=== PATIENT | female | born 1955 | race Caucasian/White ===

== ENCOUNTER → 2017-12-23 | Outpatient (CLI) | payer OTHER ==
[2017-12-23 10:01] LABS: BASOPHILS % (AUTO) 0.7 % (0.0-5.0); HEMATOCRIT 38.1 % (36-48); LYMPHOCYTES % (AUTO) 43.1 % (21.0-51.0); MEAN CORPUSCULAR HEMOGLOBIN 28.7 pg (27.0-33.0); MEAN CORPUSCULAR HGB CONC 33.9 g/dL (32.0-36.0); MEAN CORPUSCULAR VOLUME 84.7 fL (79-99); MONOCYTES % (AUTO) 5.6 % (3.0-13.0); NEUTROPHILS % (AUTO) 48.6 % (40.0-77.0); PLATELET COUNT (AUTO) 219 K/uL (130-400); RED CELL DISTRIBUTION WIDTH 13.4 % (11.0-15.5); WHITE BLOOD COUNT (AUTO) 12.3 K/uL (4.8-10.8)
[2017-12-23 10:09] LABS: HEMOGLOBIN A1C 5.7 % (4.0-6.0)
[2017-12-23 10:21] LABS: ALBUMIN 3.5 g/dL (3.5-5.0); BILIRUBIN,TOTAL 0.3 mg/dL (0.2-1.0); CREATININE 0.7 mg/dL (0.5-1.5); POTASSIUM 4.3 mmol/L (3.5-5.1); TOTAL PROTEIN, SERUM 7.6 g/dL (6.0-8.3)
== END | disposition home or self-care (01) ==
LOC: LAB 09:19
PROVIDERS: ATTEND Internal Medicine
DX: K76.0 Fatty (change of) liver, not elsewhere classified (principal); R74.8 Abnormal levels of other serum enzymes
CPT/HCPCS: 36415; 80053; 80061; 83036; 85025

== ENCOUNTER → 2018-06-21 | Outpatient (CLI) | payer OTHER ==
[2018-06-21 09:16] LABS: BASOPHILS % (AUTO) 0.6 % (0.0-5.0); HEMATOCRIT 39.7 % (36-48); LYMPHOCYTES % (AUTO) 37.2 % (21.0-51.0); MEAN CORPUSCULAR HEMOGLOBIN 28.6 pg (27.0-33.0); MEAN CORPUSCULAR HGB CONC 33.2 g/dL (32.0-36.0); MEAN CORPUSCULAR VOLUME 85.9 fL (79-99); NEUTROPHILS % (AUTO) 56.2 % (40.0-77.0); PLATELET COUNT (AUTO) 218 K/uL (130-400); RED BLOOD CELL COUNT(AUTO) 4.62 MIL/uL (4.00-5.50); RED CELL DISTRIBUTION WIDTH 13.6 % (11.0-15.5); WHITE BLOOD COUNT (AUTO) 12.8 K/uL (4.8-10.8)
[2018-06-21 09:44] LABS: ALBUMIN 3.6 g/dL (3.5-5.0); BILIRUBIN,TOTAL 0.4 mg/dL (0.2-1.0); CREATININE 0.7 mg/dL (0.5-1.5); POTASSIUM 3.7 mmol/L (3.5-5.1); THYROID STIMULATING HORMONE 1.89 uIU/mL (0.36-3.74); TOTAL PROTEIN, SERUM 7.7 g/dL (6.0-8.3)
== END | disposition home or self-care (01) ==
LOC: LAB 08:43
PROVIDERS: ATTEND Internal Medicine
DX: K76.0 Fatty (change of) liver, not elsewhere classified (principal); E03.9 Hypothyroidism, unspecified; J45.909 Unspecified asthma, uncomplicated
CPT/HCPCS: 36415; 80053; 84439; 84443; 85025

== ENCOUNTER → 2018-10-29 | Outpatient (CLI) | payer OTHER ==
[2018-10-29 08:58] LABS: BASOPHILS % (AUTO) 0.6 % (0.0-5.0); EOSINOPHILS % (AUTO) 2.2 % (0.0-8.0); HEMATOCRIT 38.8 % (36-48); LYMPHOCYTES % (AUTO) 45.2 % (21.0-51.0); MEAN CORPUSCULAR HEMOGLOBIN 28.7 pg (27.0-33.0); MEAN CORPUSCULAR VOLUME 86.9 fL (79-99); MONOCYTES % (AUTO) 5.1 % (3.0-13.0); NEUTROPHILS % (AUTO) 46.9 % (40.0-77.0); PLATELET COUNT (AUTO) 218 K/uL (130-400); RED BLOOD CELL COUNT(AUTO) 4.46 MIL/uL (4.00-5.50); WHITE BLOOD COUNT (AUTO) 10.8 K/uL (4.8-10.8)
[2018-10-29 09:11] LABS: ALBUMIN 3.4 g/dL (3.5-5.0); BILIRUBIN,TOTAL 0.4 mg/dL (0.2-1.0); CREATININE 0.7 mg/dL (0.5-1.5); POTASSIUM 4.1 mmol/L (3.5-5.1); TOTAL PROTEIN, SERUM 7.9 g/dL (6.0-8.3)
== END | disposition home or self-care (01) ==
LOC: LAB 08:33
PROVIDERS: ATTEND Internal Medicine
DX: Z00.00 Encounter for general adult medical examination without abnormal findings (principal); J45.998 Other asthma; M76.9 Unspecified enthesopathy, lower limb, excluding foot
CPT/HCPCS: 36415; 80053; 85025

== ENCOUNTER → 2018-12-30 | Outpatient (CLI) | payer OTHER ==
[2018-12-30 10:29] LABS: BASOPHILS % (AUTO) 0.6 % (0.0-5.0); HEMATOCRIT 37.8 % (36-48); LYMPHOCYTES % (AUTO) 35.1 % (21.0-51.0); MEAN CORPUSCULAR HEMOGLOBIN 28.3 pg (27.0-33.0); MEAN CORPUSCULAR HGB CONC 32.9 g/dL (32.0-36.0); MEAN CORPUSCULAR VOLUME 86.1 fL (79-99); MONOCYTES % (AUTO) 4.6 % (3.0-13.0); NEUTROPHILS % (AUTO) 57.7 % (40.0-77.0); PLATELET COUNT (AUTO) 210 K/uL (130-400); RED CELL DISTRIBUTION WIDTH 14.1 % (11.0-15.5); WHITE BLOOD COUNT (AUTO) 10.5 K/uL (4.8-10.8)
[2018-12-30 10:37] LABS: HEMOGLOBIN A1C 5.8 % (4.0-6.0)
[2018-12-30 10:49] LABS: ALBUMIN 3.3 g/dL (3.5-5.0); BILIRUBIN,TOTAL 0.2 mg/dL (0.2-1.0); CREATININE 0.9 mg/dL (0.5-1.5); POTASSIUM 4.2 mmol/L (3.5-5.1); THYROID STIMULATING HORMONE 1.84 uIU/mL (0.36-3.74); TOTAL PROTEIN, SERUM 7.2 g/dL (6.0-8.3)
[2018-12-30 10:50] LABS: B-TYPE NATRIURETIC PEPTIDE 32 pg/mL (0-100)
[2018-12-30 11:29] LABS: ERYTHROCYTE SEDIMENTATION RATE 39 MM/HR (0-30)
== END | disposition home or self-care (01) ==
LOC: LAB 10:00
PROVIDERS: ATTEND Internal Medicine
DX: J45.40 Moderate persistent asthma, uncomplicated (principal); M85.80 Other specified disorders of bone density and structure, unspecified site
CPT/HCPCS: 36415; 80053; 83036; 83880; 84443; 85025; 85651

== ENCOUNTER → 2019-02-15 | Outpatient (CLI) | payer OTHER ==
[2019-02-15 14:16] LABS: BASOPHILS % (AUTO) 0.6 % (0.0-5.0); EOSINOPHILS % (AUTO) 1.3 % (0.0-8.0); HEMATOCRIT 38.6 % (36-48); LYMPHOCYTES % (AUTO) 34.4 % (21.0-51.0); MEAN CORPUSCULAR HEMOGLOBIN 27.7 pg (27.0-33.0); MEAN CORPUSCULAR HGB CONC 32.2 g/dL (32.0-36.0); MONOCYTES % (AUTO) 5.1 % (3.0-13.0); NEUTROPHILS % (AUTO) 58.6 % (40.0-77.0); PLATELET COUNT (AUTO) 209 K/uL (130-400); RED BLOOD CELL COUNT(AUTO) 4.48 MIL/uL (4.00-5.50); RED CELL DISTRIBUTION WIDTH 14.2 % (11.0-15.5); WHITE BLOOD COUNT (AUTO) 13.3 K/uL (4.8-10.8)
== END | disposition home or self-care (01) ==
LOC: LAB 13:40
PROVIDERS: ATTEND Internal Medicine
DX: J45.901 Unspecified asthma with (acute) exacerbation (principal)
CPT/HCPCS: 36415; 85025

== ENCOUNTER → 2019-03-15 | Outpatient (CLI) | payer OTHER | END | disposition home or self-care (01) | LOC: RAH 13:08 | PROVIDERS: ATTEND Otolaryngology Plastic Surgery within the Head & Neck | DX: E04.2 Nontoxic multinodular goiter (principal); J32.0 Chronic maxillary sinusitis | CPT/HCPCS: 70486; 76536 ==

== ENCOUNTER → 2019-05-17 | Outpatient (CLI) | payer OTHER | END | disposition home or self-care (01) | LOC: RAH 08:19 | PROVIDERS: ATTEND Allergy & Immunology | DX: R05 Cough (principal) | CPT/HCPCS: 71046 ==

== ENCOUNTER → 2019-05-19 | Outpatient (CLI) | payer OTHER ==
[2019-05-19 12:44] LABS: BASOPHILS % (AUTO) 0.5 % (0.0-5.0); EOSINOPHILS % (AUTO) 1.8 % (0.0-8.0); HEMATOCRIT 39.8 % (36-48); LYMPHOCYTES % (AUTO) 42.5 % (21.0-51.0); MEAN CORPUSCULAR HEMOGLOBIN 27.9 pg (27.0-33.0); MEAN CORPUSCULAR HGB CONC 32.3 g/dL (32.0-36.0); MEAN CORPUSCULAR VOLUME 86.6 fL (79-99); NEUTROPHILS % (AUTO) 51.2 % (40.0-77.0); PLATELET COUNT (AUTO) 198 K/uL (130-400); RED CELL DISTRIBUTION WIDTH 14.1 % (11.0-15.5); WHITE BLOOD COUNT (AUTO) 13.2 K/uL (4.8-10.8)
[2019-05-19 12:56] LABS: INR 0.92 (0.85-1.15); PARTIAL THROMBOPLASTIN TIME 26.6 SEC (26.3-35.5); PROTHROMBIN TIME 9.7 SEC (9.6-11.6)
[2019-05-19 12:59] LABS: ALBUMIN 3.2 g/dL (3.5-5.0); BILIRUBIN,TOTAL 0.2 mg/dL (0.2-1.0); CREATININE 0.8 mg/dL (0.5-1.5); TOTAL PROTEIN, SERUM 6.9 g/dL (6.0-8.3)
== END | disposition home or self-care (01) ==
LOC: LAB 12:12
PROVIDERS: ATTEND Internal Medicine
DX: Z01.818 Encounter for other preprocedural examination (principal); I10 Essential (primary) hypertension
CPT/HCPCS: 36415; 80053; 85025; 85610; 85730

== ENCOUNTER 2019-06-07 06:35 | Observation (INO) | payer OTHER ==
[2019-06-03 11:43] VITALS: BP 127/59
--- NOTE | 2019-06-03 14:44 | NUR ---
Called Doctor Elmer's office and spoke to Barbie in regards to pt reporting a infection to tooth implant. Per md Barbie aware no further action.
[2019-06-07] VITALS (25 sets, daily range): BP systolic 127–170; BP diastolic 57–91
[~2019-06-07] VITALS: Ht 160 cm; Wt 72.7 kg
[~2019-06-07 06:35] MED LIST: ALBU1.252 IH; ALBU8.5H8 IH; BUDE0.5A8 IH; CETI-101 PO; CROM40SP12 NS; DOCU-116 PO; EREN70AU SQ; FEXO1TAB8 PO; FLUT16H NASAL; METR160G TP; MOME13HF IH; MONT10TA21 PO; ONDA4TAB4 PO; PRED20TA3 PO; SUMA100T16 PO; TUM PO; nasal spray IH
[2019-06-07] MEDS ORDERED: LACTATED RINGERS 1000ML 1,000 ML IV ONE (07:01)
[2019-06-07] MEDS ORDERED: LIDOCAINE 1%-EPI 1:100,000 20 ML VIAL IJ ONE (07:30)
[2019-06-07] MEDS ORDERED: SUCCINYLCHOLINE 200MG/10ML SYR ONE (07:38)
[2019-06-07] MEDS ORDERED: DEXAMETHASONE SOD PHOSPHATE 10MG/ML 1ML VIAL ONE (07:38)
[2019-06-07] MEDS ORDERED: LIDOCAINE PF 2% 5ML ABBOJECT ONE (07:38)
[2019-06-07] MEDS ORDERED: ONDANSETRON HCL 4 MG/2 ML VIAL ONE ×2 (07:39→09:14)
[2019-06-07] MEDS ORDERED: NEOSTIGMINE 5MG/5ML SYR IV ONE (07:39)
[2019-06-07] MEDS ORDERED: ROCURONIUM 10MG/1ML SYR 10 MG/ML ML ONE (07:39)
[2019-06-07] MEDS ORDERED: MIDAZOLAM HCL 1 MG/ML 2ML VIAL ONE (07:39)
[2019-06-07] MEDS ORDERED: PROPOFOL 10 MG/ML 20ML VIAL IV ONE (07:39)
[2019-06-07] MEDS ORDERED: GLYCOPYRROLATE 1 MG/5 ML SYRINGE ONE (07:39)
[2019-06-07] MEDS ORDERED: FENTANYL CITRATE PF 50 MCG/1 ML 2ML VIAL ONE (07:40)
[2019-06-07] MEDS ORDERED: CEFAZOLIN SODIUM 1 GM VIAL IVP ONE (07:45)
[2019-06-07] MEDS ORDERED: PHENYLEPHRINE HCL 10 MG/ML 1ML VIAL IV ONE (08:10)
[2019-06-07] MEDS ORDERED: SODIUM CHLORIDE 0.9% 10 ML VIAL ONE (08:10)
[2019-06-07] MEDS ORDERED: BACITRACIN 28.4 GM OINT TP ONE (08:55)
[2019-06-07] MEDS ORDERED: MEPERIDINE-PF 25 MG/ML SYG ONE ×2 (09:22→09:37)
--- NOTE | 2019-06-07 10:20 | NUR ---
note ARRIVED FROM RECOVERY ROOM. S/P RIGHT HEMITHYROIDECTOMY. DRESSING TO ANTERIOR NECK D/I. REPORTED THAT SHE HAS PARI DRAIN UNDER DRESSING. NO DRAINAGE NOTED THOUGH. NO DYSPHAGIA JUST SORE THROAT. SHE IS STARTED ON CLEAR LIQUIDS. VS STABLE. NO DISTRESS OR SOB. O2@2LNC. 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 AT HER SIDE.
[2019-06-07] MEDS ORDERED: NALOXONE HCL 0.4 MG/1 ML ML IVP PRN (10:45)
[2019-06-07] MEDS ORDERED: ACETAMINOPHEN-CODEINE 300/30MG TAB PO PRN (10:45)
[2019-06-07] MEDS ORDERED: MORPHINE-NS 50 MG/50 ML 50 ML IV PRN (10:45)
[2019-06-07] MEDS: DEXTROSE 5 % AND 0.9 % NACL 1,000 ML IV SCH ×2 (11:03→23:36)
[2019-06-07] MEDS: CEPHALEXIN 500 MG CAPSULE PO SCH ×2 (11:40→21:10)
[2019-06-07] MEDS ORDERED: PREDNISONE 20 MG TABLET PO SCH (12:30)
[2019-06-07] MEDS ORDERED: ALBUTEROL SULFATE 0.042% 1.25 MG/3 ML INH IH PRN (12:30)
[2019-06-07] MEDS ORDERED: DOCUSATE SODIUM 100 MG CAP PO PRN (12:30)
[2019-06-07] MEDS ORDERED: ONDANSETRON 4 MG TABLET PO PRN (12:30)
[2019-06-07] MEDS: PHARMACY COMMUNICATION MISC SCH ×2 (13:00→21:00)
[2019-06-07] MEDS: BUDESONIDE 0.5 MG/2 ML INH IH PRN (19:18)
[2019-06-07] MEDS ORDERED: MONTELUKAST SODIUM 10 MG TAB PO SCH (21:00)
[2019-06-07] MEDS: FLUTICASONE PROPIONATE 50MCG/SPRAY 16 GM BOTTLE NS SCH (21:10)
[2019-06-08 03:53] VITALS: BP 121/67
[2019-06-08] MEDS: PHARMACY COMMUNICATION MISC SCH (05:00)
[2019-06-08] MEDS: BUDESONIDE 0.5 MG/2 ML INH IH PRN (05:18)
[2019-06-08 05:26] LABS: BASOPHILS % (AUTO) 0.2 % (0.0-5.0); HEMATOCRIT 38.2 % (36-48); LYMPHOCYTES % (AUTO) 12.6 % (21.0-51.0); MEAN CORPUSCULAR HEMOGLOBIN 28.6 pg (27.0-33.0); MEAN CORPUSCULAR VOLUME 86.6 fL (79-99); MONOCYTES % (AUTO) 6.6 % (3.0-13.0); NEUTROPHILS % (AUTO) 80.6 % (40.0-77.0); PLATELET COUNT (AUTO) 220 K/uL (130-400); RED BLOOD CELL COUNT(AUTO) 4.41 MIL/uL (4.00-5.50); RED CELL DISTRIBUTION WIDTH 14.1 % (11.0-15.5); WHITE BLOOD COUNT (AUTO) 18.2 K/uL (4.8-10.8)
[2019-06-08 07:38] VITALS: BP 138/78
[2019-06-08] MEDS ORDERED: SUMATRIPTAN SUCCINATE 25 MG TABLET PO PRN (08:15)
[2019-06-08] MEDS ORDERED: CALCIUM CARBON 500MG CHEW TAB PO PRN (08:15)
[2019-06-08] MEDS ORDERED: PSEUDOEPHEDRINE PO SCH (09:00)
[2019-06-08] MEDS ORDERED: [UNRECOGNIZED DRUG - OTHER] IH SCH (09:00)
[2019-06-08] MEDS ORDERED: [UNRECOGNIZED DRUG - REMARK] NASAL SCH (09:00)
[2019-06-08] MEDS ORDERED: CETIRIZINE HCL 5 MG TABLET PO SCH (09:00)
[2019-06-08] MEDS ORDERED: METRONIDAZOLE TP PRN (09:00)
[2019-06-08] MEDS ORDERED: FORMOTEROL IH SCH (09:00)
[2019-06-08] MEDS ORDERED: VENTOLIN HFA IH PRN (09:00)
[2019-06-08] MEDS ORDERED: MOMETASONE IH SCH (09:00)
[2019-06-08] MEDS ORDERED: FEXOFENADINE PO SCH (09:00)
[2019-06-08] MEDS: CEPHALEXIN 500 MG CAPSULE PO SCH (09:29)
[2019-06-08] MEDS: FLUTICASONE PROPIONATE 50MCG/SPRAY 16 GM BOTTLE NS SCH (10:16)
--- NOTE | 2019-06-08 12:12 | NUR ---
PT HERE FOR SCHEDULED OUT PT PROCEDURE AMB, EMPL, INDP OF ADLS, NO TRIGGERS TO CM NO CONCERNS VOICED, DETAILED CM ASSESSMENT DEFERRED Addendum: 06/08/19 at 1214 by PURVI SNIDER RN CM Amended: Links added.
--- NOTE | 2019-06-08 13:30 | NUR ---
DISCHARGE PATIENT GIVEN DISCHARGE INSTRUCTIONS VIA TEACH BACK. RX GIVEN FOR KELFEX 500MG 1 CAP PO BID X 5 DAYS AND T3. PATIENT TO FOLLOW UP WITH DR. FUENTES ON THURSDAY. 20G PIV TO LEFT HAND DISCONTINUED, TIP INTACT. DR. FUENTES REMOVED PARI DRAIN AND APPLIED LIGHT DRY DRESSING. PATIENT STABLE AT THIS TIME. PATIENT WHILED DOWNSTAIRS TO LOBBY ACCOMPANIED BY SPOUSE AND JAMESONANDRY.
[2019-06-12] MEDS ORDERED: ERENUMAB AOOE 70 MG SQ SCH (09:00)
== END 2019-06-08 12:54 | disposition home or self-care (01) ==
LOC: DAH 06:35 → 4BH 06:36 → UNDOADMOB 10:49
PROVIDERS: ADMIT Otolaryngology Plastic Surgery within the Head & Neck; ATTEND Otolaryngology Plastic Surgery within the Head & Neck
DX: E07.9 Disorder of thyroid, unspecified (principal); J45.909 Unspecified asthma, uncomplicated; E07.89 Other specified disorders of thyroid; Z79.899 Other long term (current) drug therapy
CPT/HCPCS: 36415; 60210; 85025; 88307; 88331; 94640 ×2; 94664; 96365; A4215; A4221; A4222; A4223; A4600; A4663; A4930 ×2; C1729; G0378 ×27; J0330; J0690; J1100; J2001; J2175 ×2; J2250; J2270; J2370; J2405 ×2; J2704; J2710; J3010; J3490 ×2; J7042 ×2; J7120 ×2

== ENCOUNTER → 2019-07-06 | Outpatient (CLI) | payer OTHER ==
[2019-07-06 12:35] LABS: ALBUMIN 3.3 g/dL (3.5-5.0); CREATININE 0.7 mg/dL (0.5-1.5); PHOSPHORUS 3.2 mg/dL (2.5-4.9); THYROID STIMULATING HORMONE 4.22 uIU/mL (0.36-3.74)
== END | disposition home or self-care (01) ==
LOC: LAB 11:19
PROVIDERS: ATTEND Internal Medicine Endocrinology, Diabetes & Metabolism
DX: C73 Malignant neoplasm of thyroid gland (principal); E55.9 Vitamin D deficiency, unspecified
CPT/HCPCS: 36415; 80069; 82306; 84439; 84443

== ENCOUNTER → 2019-07-08 | Outpatient (CLI) | payer OTHER | END | disposition home or self-care (01) | LOC: RAH 08:01 | PROVIDERS: ATTEND Internal Medicine Endocrinology, Diabetes & Metabolism | DX: C73 Malignant neoplasm of thyroid gland (principal); E04.1 Nontoxic single thyroid nodule | CPT/HCPCS: 76536 ==

== ENCOUNTER → 2019-08-18 | Outpatient (CLI) | payer OTHER ==
[2019-08-18 08:15] LABS: BASOPHILS % (AUTO) 0.6 % (0.0-5.0); EOSINOPHILS % (AUTO) 1.6 % (0.0-8.0); HEMATOCRIT 38.3 % (36-48); LYMPHOCYTES % (AUTO) 31.2 % (21.0-51.0); MEAN CORPUSCULAR HGB CONC 32.7 g/dL (32.0-36.0); MEAN CORPUSCULAR VOLUME 85.8 fL (79-99); MONOCYTES % (AUTO) 5.1 % (3.0-13.0); NEUTROPHILS % (AUTO) 61.5 % (40.0-77.0); PLATELET COUNT (AUTO) 199 K/uL (130-400); RED BLOOD CELL COUNT(AUTO) 4.47 MIL/uL (4.00-5.50); RED CELL DISTRIBUTION WIDTH 13.9 % (11.0-15.5); WHITE BLOOD COUNT (AUTO) 10.9 K/uL (4.8-10.8)
[2019-08-18 08:40] LABS: ALBUMIN 3.3 g/dL (3.5-5.0); BILIRUBIN,TOTAL 0.2 mg/dL (0.2-1.0); CREATININE 0.7 mg/dL (0.5-1.5); POTASSIUM 4.5 mmol/L (3.5-5.1); THYROID STIMULATING HORMONE 3.51 uIU/mL (0.36-3.74); TOTAL PROTEIN, SERUM 7.2 g/dL (6.0-8.3)
== END | disposition home or self-care (01) ==
LOC: LAB 07:48
PROVIDERS: ATTEND Internal Medicine
DX: C73 Malignant neoplasm of thyroid gland (principal); E04.9 Nontoxic goiter, unspecified; Z79.899 Other long term (current) drug therapy
CPT/HCPCS: 36415; 80053; 80061; 84439; 84443; 85025

== ENCOUNTER → 2019-08-25 | Outpatient (CLI) | payer OTHER ==
[2019-08-25 12:00] LABS: BASOPHILS % (AUTO) 0.3 % (0.0-5.0); EOSINOPHILS % (AUTO) 1.5 % (0.0-8.0); HEMATOCRIT 38.3 % (36-48); LYMPHOCYTES % (AUTO) 32.3 % (21.0-51.0); MEAN CORPUSCULAR HEMOGLOBIN 28.3 pg (27.0-33.0); MEAN CORPUSCULAR HGB CONC 33.1 g/dL (32.0-36.0); MEAN CORPUSCULAR VOLUME 85.5 fL (79-99); NEUTROPHILS % (AUTO) 61.9 % (40.0-77.0); PLATELET COUNT (AUTO) 208 K/uL (130-400); RED BLOOD CELL COUNT(AUTO) 4.48 MIL/uL (4.00-5.50); RED CELL DISTRIBUTION WIDTH 13.9 % (11.0-15.5); WHITE BLOOD COUNT (AUTO) 11.7 K/uL (4.8-10.8)
[2019-08-25 12:22] LABS: INR 0.92 (0.85-1.15); PARTIAL THROMBOPLASTIN TIME 26.2 SEC (26.3-35.5); PROTHROMBIN TIME 9.5 SEC (9.6-11.6)
== END | disposition home or self-care (01) ==
LOC: LAB 11:38
PROVIDERS: ATTEND Internal Medicine
DX: E04.1 Nontoxic single thyroid nodule (principal); E03.9 Hypothyroidism, unspecified; E04.9 Nontoxic goiter, unspecified; J45.40 Moderate persistent asthma, uncomplicated
CPT/HCPCS: 36415; 71046; 85025; 85610; 85730

== ENCOUNTER 2019-09-13 06:12 | Observation (INO) | payer OTHER ==
[2019-09-12 11:41] LABS: BASOPHILS % (AUTO) 0.5 % (0.0-5.0); EOSINOPHILS % (AUTO) 1.6 % (0.0-8.0); HEMATOCRIT 38.3 % (36-48); LYMPHOCYTES % (AUTO) 34.8 % (21.0-51.0); MEAN CORPUSCULAR HEMOGLOBIN 28.2 pg (27.0-33.0); MEAN CORPUSCULAR HGB CONC 32.6 g/dL (32.0-36.0); MEAN CORPUSCULAR VOLUME 86.3 fL (79-99); MONOCYTES % (AUTO) 5.7 % (3.0-13.0); NEUTROPHILS % (AUTO) 57.1 % (40.0-77.0); PLATELET COUNT (AUTO) 212 K/uL (130-400); RED BLOOD CELL COUNT(AUTO) 4.44 MIL/uL (4.00-5.50); RED CELL DISTRIBUTION WIDTH 13.6 % (11.0-15.5); WHITE BLOOD COUNT (AUTO) 11.8 K/uL (4.8-10.8)
[2019-09-12 12:22] VITALS: BP 115/59
--- NOTE | 2019-09-12 18:27 | NUR ---
ABNORMAL LABS WBC 11.[address] FUENTES, NO FURTHER ORDERS GIVEN, MAY PROCEED WITH PLANNED PROCEDURE.
[~2019-09-13] VITALS: Ht 160 cm; Wt 74.4 kg
[2019-09-13] VITALS (21 sets, daily range): BP systolic 125–151; BP diastolic 59–82
[~2019-09-13 06:12] MED LIST changes: +AZEL137S11 NS; +CALC500T13 PO; -CETI-101 PO; -CROM40SP12 NS; +LEVO5TAB13 PO; +LIOT25TA12 PO; -TUM PO; -nasal spray IH
[2019-09-13] MEDS ORDERED: LIDOCAINE PF 2% 5ML ABBOJECT ONE ×2 (07:00→08:29)
[2019-09-13] MEDS ORDERED: SUCCINYLCHOLINE 200MG/10ML SYR ONE (07:00)
[2019-09-13] MEDS ORDERED: PROPOFOL 10 MG/ML 20ML VIAL IV ONE (07:00)
[2019-09-13] MEDS ORDERED: FENTANYL CITRATE PF 50 MCG/1 ML 2ML VIAL ONE (07:01)
[2019-09-13] MEDS ORDERED: LIDOCAINE 1%-EPI 1:100,000 20 ML VIAL IJ ONE (07:02)
[2019-09-13] MEDS ORDERED: BACITRACIN 28.4 GM OINT TP ONE (07:02)
[2019-09-13] MEDS ORDERED: PHENYLEPHRINE HCL 10 MG/ML 1ML VIAL IV ONE (07:04)
[2019-09-13] MEDS ORDERED: SCOPOLAMINE HYDROBROMIDE 1 EACH ADH..PATCH TD ONE (07:17)
[2019-09-13] MEDS ORDERED: CEFAZOLIN SODIUM 1 GM VIAL ONE (07:28)
[2019-09-13] MEDS ORDERED: DEXAMETHASONE SOD PHOSPHATE 10MG/ML 1ML VIAL ONE (07:41)
[2019-09-13] MEDS ORDERED: ONDANSETRON HCL 4 MG/2 ML VIAL ONE (08:29)
[2019-09-13] MEDS ORDERED: MEPERIDINE-PF 25 MG/ML SYG ONE ×2 (08:38→09:08)
[2019-09-13] MEDS ORDERED: KETOROLAC TROMETHAMINE 30MG/ML ONE (08:39)
[2019-09-13] MEDS ORDERED: DEXTROSE 5 % AND 0.9 % NACL 1,000 ML IV ONE (10:37)
[2019-09-13] MEDS ORDERED: MORPHINE-NS 50 MG/50 ML 50 ML IV ONE (11:00)
[2019-09-13] MEDS: DEXTROSE 5 % AND 0.9 % NACL 1,000 ML IV SCH ×2 (11:15→22:46)
[2019-09-13] MEDS ORDERED: ACETAMINOPHEN-CODEINE 300/30MG TAB PO PRN (11:15)
[2019-09-13] MEDS ORDERED: MORPHINE-NS 50 MG/50 ML 50 ML IV PRN (11:30)
[2019-09-13] MEDS ORDERED: NALOXONE HCL 0.4 MG/1 ML ML IVP PRN (11:30)
[2019-09-13] MEDS: CALCIUM CARBON 500MG CHEW TAB PO SCH ×2 (12:44→17:24)
[2019-09-13] MEDS ORDERED: ALBUTEROL SULFATE 0.042% 1.25 MG/3 ML INH IH SCH (19:45)
[2019-09-13] MEDS ORDERED: ONDANSETRON 4 MG TABLET PO PRN (19:45)
[2019-09-13] MEDS ORDERED: DOCUSATE SODIUM 100 MG CAP PO PRN (19:45)
[2019-09-13] MEDS ORDERED: PREDNISONE 20 MG TABLET PO SCH (19:45)
[2019-09-13] MEDS ORDERED: CALCIUM CARBON 500MG CHEW TAB PO PRN (19:45)
[2019-09-13] MEDS: BUDESONIDE 0.5 MG/2 ML INH IH PRN (20:14)
[2019-09-13] MEDS: PHARMACY COMMUNICATION MISC SCH (20:15)
[2019-09-13] MEDS: FLUTICASONE PROPIONATE 50MCG/SPRAY 16 GM BOTTLE NS SCH (21:00)
[2019-09-13] MEDS ORDERED: MONTELUKAST SODIUM 10 MG TAB PO SCH (21:00)
[2019-09-13] MEDS: CEPHALEXIN 500 MG CAPSULE PO SCH (21:20)
[2019-09-14] VITALS: BP 118/67
[2019-09-14 04:00] VITALS: BP 111/55
[2019-09-14] MEDS: PHARMACY COMMUNICATION MISC SCH (04:15)
[2019-09-14 06:10] LABS: MEAN CORPUSCULAR HEMOGLOBIN 27.4 pg (27.0-33.0); MEAN CORPUSCULAR HGB CONC 30.9 g/dL (32.0-36.0); MEAN CORPUSCULAR VOLUME 88.8 fL (79-99); PLATELET COUNT (AUTO) 193 K/uL (130-400); RED BLOOD CELL COUNT(AUTO) 3.94 MIL/uL (4.00-5.50); RED CELL DISTRIBUTION WIDTH 14.1 % (11.0-15.5); WHITE BLOOD COUNT (AUTO) 18.2 K/uL (4.8-10.8)
[2019-09-14] MEDS: BUDESONIDE 0.5 MG/2 ML INH IH PRN (06:40)
[2019-09-14 08:00] VITALS: BP 106/66
--- NOTE | 2019-09-14 08:00 | NUR ---
DR JULES IN TO SEE PT. REMOVED PARI DRAIN FROM SURG. WOUND NECK. WOUND CLEAN AND CLOSED WITH SUTURES IN PLACE. WOUND COVERED AGAIN WITH 4X4 AND SECURED
[2019-09-14] MEDS: CEPHALEXIN 500 MG CAPSULE PO SCH (08:17)
[2019-09-14] MEDS: CALCIUM CARBON 500MG CHEW TAB PO SCH (08:18)
[2019-09-14] MEDS: FLUTICASONE PROPIONATE 50MCG/SPRAY 16 GM BOTTLE NS SCH (08:19)
[2019-09-14] MEDS ORDERED: FEXOFENADINE PO SCH (09:00)
[2019-09-14] MEDS ORDERED: ALBUTEROL SULFATE 0.083% 2.5 MG/3 ML INH IH PRN (09:00)
[2019-09-14] MEDS ORDERED: FORMOTEROL IH SCH (09:00)
[2019-09-14] MEDS ORDERED: Azelastine HCl 137 MCG NASAL SCH (09:00)
[2019-09-14] MEDS ORDERED: Liothyronine Sodium 25 MCG PO SCH (09:00)
[2019-09-14] MEDS ORDERED: SUMATRIPTAN 100 MG PO PRN (09:00)
[2019-09-14] MEDS ORDERED: PSEUDOEPHEDRINE PO SCH (09:00)
[2019-09-14] MEDS ORDERED: METRONIDAZOLE TP PRN (09:00)
[2019-09-14] MEDS ORDERED: AIMOVIG SQ SCH (09:00)
[2019-09-14] MEDS ORDERED: MOMETASONE IH SCH (09:00)
[2019-09-14] MEDS ORDERED: VENTOLIN HFA IH PRN (09:00)
[2019-09-14 12:00] VITALS: BP 120/58
--- NOTE | 2019-09-14 15:23 | NUR ---
Discharge instructions reviewed with patient. Discussed medications, follow up appointments, as well as signs and symptoms of infection and when to see a physician or go to the ER. Patient verbalized understanding of discharge instructions. Patient to be discharged home per private transport in the company of spouse.
[2019-09-14] MEDS ORDERED: Levocetirizine Dihydrochloride 5 MG PO SCH (21:00)
== END 2019-09-14 15:30 | disposition home or self-care (01) ==
LOC: DAH 06:12 → DAHIP 06:13 → 4AH 10:14 → 3CH 18:56
PROVIDERS: ADMIT Otolaryngology Plastic Surgery within the Head & Neck; ATTEND Otolaryngology Plastic Surgery within the Head & Neck
DX: C73 Malignant neoplasm of thyroid gland (principal); J45.909 Unspecified asthma, uncomplicated; Z79.899 Other long term (current) drug therapy
CPT/HCPCS: 36415 ×2; 60210; 82310; 85025; 85027; 94640 ×2; 94664; 96365; A4215; A4221; A4222; A4223; A4452; A4663; A6260; G0378 ×31; J0330; J0690; J1100; J1885; J2001 ×2; J2175 ×2; J2270; J2370; J2405; J2704; J3010; J3490; J7042 ×2

== ENCOUNTER → 2019-09-22 | Outpatient (CLI) | payer OTHER ==
[2019-09-22 12:56] LABS: ALBUMIN 3.3 g/dL (3.5-5.0); CREATININE 0.5 mg/dL (0.5-1.5); PHOSPHORUS 3.1 mg/dL (2.5-4.9); POTASSIUM 3.9 mmol/L (3.5-5.1)
== END | disposition home or self-care (01) ==
LOC: LAB 11:37
PROVIDERS: ATTEND Internal Medicine Endocrinology, Diabetes & Metabolism
DX: C73 Malignant neoplasm of thyroid gland (principal); E55.9 Vitamin D deficiency, unspecified
CPT/HCPCS: 36415; 80069; 82306

== ENCOUNTER → 2019-11-17 | Outpatient (CLI) | payer OTHER ==
[2019-11-17 10:47] LABS: ALBUMIN 3.4 g/dL (3.5-5.0); CREATININE 0.7 mg/dL (0.5-1.5); PHOSPHORUS 3.2 mg/dL (2.5-4.9); POTASSIUM 3.9 mmol/L (3.5-5.1); THYROID STIMULATING HORMONE 0.09 uIU/mL (0.36-3.74)
== END | disposition home or self-care (01) ==
LOC: RAH 09:15
PROVIDERS: ATTEND Internal Medicine
DX: C73 Malignant neoplasm of thyroid gland (principal); M54.5 Low back pain; E55.9 Vitamin D deficiency, unspecified
CPT/HCPCS: 36415; 72100; 80069; 82306; 84439; 84443; 86800

== ENCOUNTER → 2020-02-16 | Outpatient (CLI) | payer OTHER ==
[2020-02-16 08:36] LABS: ALBUMIN 3.4 g/dL (3.5-5.0); CREATININE 0.7 mg/dL (0.5-1.5); PHOSPHORUS 2.7 mg/dL (2.5-4.9); POTASSIUM 4.1 mmol/L (3.5-5.1); THYROID STIMULATING HORMONE 0.37 uIU/mL (0.36-3.74)
== END | disposition home or self-care (01) ==
LOC: RAH 07:24
PROVIDERS: ATTEND Internal Medicine Endocrinology, Diabetes & Metabolism
DX: C73 Malignant neoplasm of thyroid gland (principal); E55.9 Vitamin D deficiency, unspecified
CPT/HCPCS: 36415; 76536; 80069; 82306; 84439; 84443; 86800

== ENCOUNTER → 2020-09-04 | Outpatient (CLI) | payer OTHER ==
[~2020-09-04] MED LIST changes: -ALBU1.252 IH; -DOCU-116 PO; -EREN70AU SQ; +FAMO-136 PO; -FEXO1TAB8 PO; +LEVO100T4 PO; -LIOT25TA12 PO; -PRED20TA3 PO
[2020-09-04 12:45] LABS: BASOPHILS % (AUTO) 0.6 % (0.0-5.0); EOSINOPHILS % (AUTO) 2.4 % (0.0-8.0); LYMPHOCYTES % (AUTO) 21.7 % (21.0-51.0); MEAN CORPUSCULAR HEMOGLOBIN 29.3 pg (27.0-33.0); MEAN CORPUSCULAR HGB CONC 30.6 g/dL (32.0-36.0); MEAN CORPUSCULAR VOLUME 95.7 fL (79-99); MONOCYTES % (AUTO) 6.2 % (3.0-13.0); NEUTROPHILS % (AUTO) 68.4 % (40.0-77.0); PLATELET COUNT (AUTO) 255 K/uL (130-400); RED BLOOD CELL COUNT(AUTO) 3.45 MIL/uL (4.00-5.50); RED CELL DISTRIBUTION WIDTH 14.4 % (11.0-15.5); WHITE BLOOD COUNT (AUTO) 16.2 K/uL (4.8-10.8)
[2020-09-04 13:21] LABS: B-TYPE NATRIURETIC PEPTIDE 46 pg/mL (0-100)
[2020-09-04 13:32] LABS: ALANINE AMINOTRANSFERASE 34 U/L (12-78); ALBUMIN 3.2 g/dL (3.5-5.0); ASPARTATE AMINOTRANSFERASE 32 U/L (10-37); BILIRUBIN,TOTAL 0.2 mg/dL (0.2-1.0); CARBON DIOXIDE 29 mmol/L (21-32); CHLORIDE 103 mmol/L (101-111); CREATININE 0.7 mg/dL (0.5-1.5); GLOMERULAR FILTR. RATE CALC 90 mL/min (>60); GLUCOSE,RANDOM 87 mg/dL (70-105); POTASSIUM 3.9 mmol/L (3.5-5.1); SODIUM SERUM 143 mmol/L (136-145); THYROID STIMULATING HORMONE 0.22 uIU/mL (0.36-3.74); TOTAL PROTEIN, SERUM 8.1 g/dL (6.0-8.3); UREA NITROGEN, BLOOD 18 mg/dL (7-18)
[2020-09-04 14:01] LABS: ERYTHROCYTE SEDIMENTATION RATE 115 MM/HR (0-30)
[2020-09-04 14:35] LABS: T4 (THYROXINE) 10.9 ug/dL (4.7-13.3)
== END | disposition home or self-care (01) ==
LOC: LAB 11:51
PROVIDERS: ATTEND Internal Medicine
DX: G62.81 Critical illness polyneuropathy (principal); G72.81 Critical illness myopathy; Z99.3 Dependence on wheelchair
CPT/HCPCS: 36415; 80053; 82306; 82607; 82728; 82746; 83880; 84436; 84439; 84443; 85025; 85651; 86140

== ENCOUNTER → 2020-09-26 | Outpatient (CLI) | payer OTHER ==
[2020-09-26 16:29] LABS: ALBUMIN 3.1 g/dL (3.5-5.0); CREATININE 0.7 mg/dL (0.5-1.5); PHOSPHORUS 4.6 mg/dL (2.5-4.9); THYROID STIMULATING HORMONE 0.12 uIU/mL (0.36-3.74)
[2020-09-26 16:44] LABS: POTASSIUM 3.7 mmol/L (3.5-5.1)
== END | disposition home or self-care (01) ==
LOC: LAB 15:09
PROVIDERS: ATTEND Internal Medicine Endocrinology, Diabetes & Metabolism
DX: G72.81 Critical illness myopathy (principal); G62.81 Critical illness polyneuropathy; Z99.3 Dependence on wheelchair
CPT/HCPCS: 36415; 80069; 82306; 84432; 84439; 84443; 86800

== ENCOUNTER → 2020-10-04 | Outpatient (CLI) | payer OTHER | END | disposition home or self-care (01) | LOC: RAH 11:11 | PROVIDERS: ATTEND Internal Medicine Endocrinology, Diabetes & Metabolism | DX: C73 Malignant neoplasm of thyroid gland (principal) | CPT/HCPCS: 76536 ==

== ENCOUNTER → 2020-11-06 | Outpatient (CLI) | payer OTHER | END | disposition home or self-care (01) | LOC: RAH 10:52 | PROVIDERS: ATTEND Internal Medicine Critical Care Medicine | DX: J90 Pleural effusion, not elsewhere classified (principal); J80 Acute respiratory distress syndrome; M51.35 Other intervertebral disc degeneration, thoracolumbar region | CPT/HCPCS: 71250 ==

== ENCOUNTER → 2020-12-18 | Outpatient (CLI) | payer OTHER ==
[2020-12-18 11:22] LABS: BASOPHILS % (AUTO) 0.7 % (0.0-5.0); EOSINOPHILS % (AUTO) 2.7 % (0.0-8.0); HEMATOCRIT 36.1 % (36-48); LYMPHOCYTES % (AUTO) 31.6 % (21.0-51.0); MEAN CORPUSCULAR HEMOGLOBIN 30.1 pg (27.0-33.0); MEAN CORPUSCULAR HGB CONC 32.1 g/dL (32.0-36.0); MEAN CORPUSCULAR VOLUME 93.5 fL (79-99); NEUTROPHILS % (AUTO) 58.6 % (40.0-77.0); PLATELET COUNT (AUTO) 199 K/uL (130-400); RED BLOOD CELL COUNT(AUTO) 3.86 MIL/uL (4.00-5.50); RED CELL DISTRIBUTION WIDTH 12.9 % (11.0-15.5); WHITE BLOOD COUNT (AUTO) 10.6 K/uL (4.8-10.8)
[2020-12-18 11:52] LABS: % IRON SATURATION 56.4 % (22-44)
[2020-12-18 11:54] LABS: ALANINE AMINOTRANSFERASE 79 U/L (12-78); ALBUMIN 3.3 g/dL (3.5-5.0); ASPARTATE AMINOTRANSFERASE 42 U/L (10-37); BILIRUBIN,DIRECT < 0.1 mg/dL (0.0-0.3); BILIRUBIN,TOTAL 0.2 mg/dL (0.2-1.0); TOTAL PROTEIN, SERUM 7.4 g/dL (6.0-8.3)
== END | disposition home or self-care (01) ==
LOC: LAB 09:38
PROVIDERS: ATTEND Internal Medicine Gastroenterology
DX: C73 Malignant neoplasm of thyroid gland (principal); D50.9 Iron deficiency anemia, unspecified; E55.9 Vitamin D deficiency, unspecified
CPT/HCPCS: 36415; 80076; 82306; 83540; 83550; 84436; 84443; 85025; 86800

== ENCOUNTER → 2021-01-21 | Outpatient (CLI) | payer OTHER ==
[2021-01-21 09:02] LABS: HEMATOCRIT 37.9 % (36-48); MEAN CORPUSCULAR HEMOGLOBIN 29.7 pg (27.0-33.0); RED BLOOD CELL COUNT(AUTO) 4.21 MIL/uL (4.00-5.50); RED CELL DISTRIBUTION WIDTH 13.2 % (11.0-15.5); WHITE BLOOD COUNT (AUTO) 7.9 K/uL (4.8-10.8)
[2021-01-21 09:15] LABS: ALBUMIN 3.4 g/dL (3.5-5.0); BILIRUBIN,TOTAL 0.4 mg/dL (0.2-1.0); CREATININE 0.8 mg/dL (0.5-1.5); POTASSIUM 3.8 mmol/L (3.5-5.1); TOTAL PROTEIN, SERUM 7.8 g/dL (6.0-8.3)
[2021-01-21 09:30] LABS: INR 0.98 (0.85-1.15); PROTHROMBIN TIME 10.7 SEC (9.6-11.6)
[2021-01-22 08:13] LABS: HEPATITIS A ANTIBODY IGM Negative (Negative); HEPATITIS B CORE IGM Negative (Negative); HEPATITIS Bs ANTIGEN SCREEN P Negative (Negative)
[2021-01-22 15:12] LABS: ALPHA-1-ANTITRYPSIN 149 mg/dL (101-187)
== END | disposition home or self-care (01) ==
LOC: RAH 08:04
PROVIDERS: ATTEND Internal Medicine Gastroenterology
DX: R94.5 Abnormal results of liver function studies (principal)
CPT/HCPCS: 36415; 76700; 80053; 80074; 82103; 82390; 83516; 85027; 85610; 85730; 86255; 86706; 86708

== ENCOUNTER → 2021-04-22 | Outpatient (CLI) | payer OTHER ==
[2021-04-22 11:08] LABS: ALBUMIN 3.4 g/dL (3.5-5.0); BILIRUBIN,DIRECT 0.1 mg/dL (0.0-0.3); BILIRUBIN,TOTAL 0.2 mg/dL (0.2-1.0); TOTAL PROTEIN, SERUM 7.5 g/dL (6.0-8.3)
== END | disposition home or self-care (01) ==
LOC: LAB 09:09
PROVIDERS: ATTEND Internal Medicine Gastroenterology
DX: R94.5 Abnormal results of liver function studies (principal)
CPT/HCPCS: 36415; 80076; 82977

== ENCOUNTER → 2021-05-03 | Outpatient (CLI) | payer OTHER | END | disposition home or self-care (01) | LOC: RAH 10:32 | PROVIDERS: ATTEND Internal Medicine Gastroenterology | DX: K22.5 Diverticulum of esophagus, acquired (principal) | CPT/HCPCS: 74240 ==

== ENCOUNTER → 2021-05-07 | Outpatient (CLI) | payer OTHER ==
[2021-05-07 09:14] LABS: ALBUMIN 3.3 g/dL (3.5-5.0); CREATININE 0.7 mg/dL (0.5-1.5); PHOSPHORUS 3.6 mg/dL (2.5-4.9); POTASSIUM 4.2 mmol/L (3.5-5.1); THYROID STIMULATING HORMONE 0.36 uIU/mL (0.36-3.74)
== END | disposition home or self-care (01) ==
LOC: LAB 08:01
PROVIDERS: ATTEND Internal Medicine Endocrinology, Diabetes & Metabolism
DX: C73 Malignant neoplasm of thyroid gland (principal); E55.9 Vitamin D deficiency, unspecified
CPT/HCPCS: 36415; 80069; 82306; 84436; 84443

== ENCOUNTER → 2021-05-31 | Outpatient (CLI) | payer OTHER ==
[2021-05-31 10:12] LABS: BASOPHILS % (AUTO) 0.8 % (0.0-5.0); EOSINOPHILS % (AUTO) 2.3 % (0.0-8.0); HEMATOCRIT 40.7 % (36-48); LYMPHOCYTES % (AUTO) 30.3 % (21.0-51.0); MEAN CORPUSCULAR HEMOGLOBIN 29.4 pg (27.0-33.0); MEAN CORPUSCULAR HGB CONC 32.7 g/dL (32.0-36.0); MONOCYTES % (AUTO) 5.8 % (3.0-13.0); NEUTROPHILS % (AUTO) 60.4 % (40.0-77.0); PLATELET COUNT (AUTO) 156 K/uL (130-400); RED BLOOD CELL COUNT(AUTO) 4.52 MIL/uL (4.00-5.50); RED CELL DISTRIBUTION WIDTH 12.9 % (11.0-15.5); WHITE BLOOD COUNT (AUTO) 11.6 K/uL (4.8-10.8)
[2021-05-31 10:25] LABS: INR 0.99 (0.85-1.15); PROTHROMBIN TIME 10.8 SEC (9.6-11.6)
[2021-05-31 10:27] LABS: ALBUMIN 3.5 g/dL (3.5-5.0); BILIRUBIN,TOTAL 0.3 mg/dL (0.2-1.0); CREATININE 0.8 mg/dL (0.5-1.5); POTASSIUM 4.1 mmol/L (3.5-5.1); TOTAL PROTEIN, SERUM 7.4 g/dL (6.0-8.3)
== END | disposition home or self-care (01) ==
LOC: LAB 09:31
PROVIDERS: ATTEND Internal Medicine Gastroenterology
DX: R94.5 Abnormal results of liver function studies (principal)
CPT/HCPCS: 36415; 80053; 85025; 85610

== ENCOUNTER 2021-07-11 13:05 | Emergency (ER) | payer OTHER, MEDICARE ==
[~2021-07-11] VITALS: Ht 160 cm; Wt 68.5 kg
[2021-07-11] MEDS ORDERED: NITROGLYCERIN 1GM OINT 1 INCH/1GM TD ONE ×2 (13:29→13:30)
[2021-07-11] MEDS ORDERED: ASPIRIN 325MG TAB ONE (13:29)
[2021-07-11] MEDS ORDERED: ASPIRIN 325MG TAB PO ONE (13:30)
[2021-07-11] MEDS ORDERED: NITROGLYCERIN 0.4 MG SL TAB SL PRN (13:30)
[2021-07-11 13:37] LABS: HEMATOCRIT 39.7 % (36-48); MEAN CORPUSCULAR HEMOGLOBIN 29.8 pg (27.0-33.0); MEAN CORPUSCULAR VOLUME 90.2 fL (79-99); PLATELET COUNT (AUTO) 191 K/uL (130-400); RED CELL DISTRIBUTION WIDTH 13.4 % (11.0-15.5)
[2021-07-11 13:48] LABS: CREATININE 0.7 mg/dL (0.5-1.5)
[2021-07-11 13:49] LABS: INR 0.97 (0.85-1.15); PROTHROMBIN TIME 10.6 SEC (9.6-11.6)
[2021-07-11 13:50] LABS: PARTIAL THROMBOPLASTIN TIME 26.9 SEC (26.3-35.5)
[2021-07-11 13:53] LABS: ALBUMIN 3.4 g/dL (3.5-5.0); BILIRUBIN,TOTAL 0.2 mg/dL (0.2-1.0); TOTAL PROTEIN, SERUM 7.5 g/dL (6.0-8.3)
[2021-07-11 14:16] LABS: B-TYPE NATRIURETIC PEPTIDE 170 pg/mL (0-100)
[2021-07-11 14:18] LABS: BASOPHILS % (MANUAL) 2 % (0-2); EOSINOPHILS % (MANUAL) 3 % (1-6); LYMPHOCYTES % (MANUAL) 32 % (22-44); MONOCYTES % (MANUAL) 7 % (2-9); SEGMENTED NEUTROPHILS % 56 % (40-70)
[2021-07-11 14:19] LABS: MAN.DIFF COMMENT-IMPRESSION MANUAL DIFFERENTIAL
[2021-07-11 14:20] LABS: PLATELET MORPHOLOGY COMMENT ADEQUATE
[2021-07-11 15:12] VITALS: BP 134/76
== END 2021-07-11 15:13 | disposition home or self-care (01) ==
LOC: EDH 13:05
DX: R07.89 Other chest pain (principal); I48.91 Unspecified atrial fibrillation; I10 Essential (primary) hypertension; J45.909 Unspecified asthma, uncomplicated; K21.9 Gastro-esophageal reflux disease without esophagitis; Z91.041 Radiographic dye allergy status; Z88.7 Allergy status to serum and vaccine; Z88.8 Allergy status to other drugs, medicaments and biological substances
CPT/HCPCS: 36415; 71045; 80053; 83880; 84484; 85025; 85610; 85730; 93005

== ENCOUNTER → 2021-09-02 | Outpatient (CLI) | payer MEDICARE, OTHER | END | disposition home or self-care (01) | LOC: SHCH 13:51 | PROVIDERS: ATTEND Internal Medicine Cardiovascular Disease | DX: I35.8 Other nonrheumatic aortic valve disorders (principal); I10 Essential (primary) hypertension; E78.5 Hyperlipidemia, unspecified | CPT/HCPCS: 93306; 93356 ==

== ENCOUNTER → 2021-09-02 | Outpatient (CLI) | payer MEDICARE ==
[2021-09-02 12:18] LABS: BASOPHILS % (AUTO) 0.8 % (0.0-5.0); HEMATOCRIT 42.3 % (36-48); LYMPHOCYTES % (AUTO) 31.4 % (21.0-51.0); MEAN CORPUSCULAR HEMOGLOBIN 29.4 pg (27.0-33.0); MEAN CORPUSCULAR HGB CONC 32.2 g/dL (32.0-36.0); MEAN CORPUSCULAR VOLUME 91.6 fL (79-99); MONOCYTES % (AUTO) 4.9 % (3.0-13.0); NEUTROPHILS % (AUTO) 60.6 % (40.0-77.0); PLATELET COUNT (AUTO) 198 K/uL (130-400); RED BLOOD CELL COUNT(AUTO) 4.62 MIL/uL (4.00-5.50); RED CELL DISTRIBUTION WIDTH 12.9 % (11.0-15.5); WHITE BLOOD COUNT (AUTO) 11.5 K/uL (4.8-10.8)
[2021-09-02 12:46] LABS: HEMOGLOBIN A1C 5.2 % (4.0-6.0)
[2021-09-02 12:51] LABS: ALBUMIN 3.9 g/dL (3.5-5.0); BILIRUBIN,DIRECT 0.1 mg/dL (0.0-0.3); BILIRUBIN,TOTAL 0.2 mg/dL (0.2-1.0); CREATININE 0.7 mg/dL (0.5-1.5); POTASSIUM 4.3 mmol/L (3.5-5.1); THYROID STIMULATING HORMONE 0.43 uIU/mL (0.36-3.74); TOTAL PROTEIN, SERUM 8.1 g/dL (6.0-8.3)
== END | disposition home or self-care (01) ==
LOC: LAB 10:32
PROVIDERS: ATTEND Internal Medicine
DX: E04.9 Nontoxic goiter, unspecified (principal); G62.81 Critical illness polyneuropathy; J84.10 Pulmonary fibrosis, unspecified; J32.9 Chronic sinusitis, unspecified; K76.0 Fatty (change of) liver, not elsewhere classified; I10 Essential (primary) hypertension; Z79.899 Other long term (current) drug therapy; E55.9 Vitamin D deficiency, unspecified; D50.9 Iron deficiency anemia, unspecified
CPT/HCPCS: 36415; 80053; 80061; 80076; 82043; 82306; 82607; 83036; 84443; 85025

== ENCOUNTER → 2021-09-03 | Outpatient (CLI) | payer MEDICARE, OTHER ==
[2021-09-03 12:58] LABS: ALBUMIN 3.7 g/dL (3.5-5.0); CREATININE 0.8 mg/dL (0.5-1.5); PHOSPHORUS 3.8 mg/dL (2.5-4.9); POTASSIUM 4.3 mmol/L (3.5-5.1); THYROID STIMULATING HORMONE 0.38 uIU/mL (0.36-3.74)
== END | disposition home or self-care (01) ==
LOC: RAH 11:06
PROVIDERS: ATTEND Internal Medicine Endocrinology, Diabetes & Metabolism
DX: C73 Malignant neoplasm of thyroid gland (principal); E55.9 Vitamin D deficiency, unspecified
CPT/HCPCS: 36415; 76536; 80069; 82306; 84439; 84443; 86800

== ENCOUNTER → 2021-12-09 | Outpatient (CLI) | payer MEDICARE ==
[2021-12-09 10:33] LABS: BASOPHILS % (AUTO) 0.8 % (0.0-5.0); EOSINOPHILS % (AUTO) 1.9 % (0.0-8.0); HEMATOCRIT 40.7 % (36-48); LYMPHOCYTES % (AUTO) 38.9 % (21.0-51.0); MEAN CORPUSCULAR HEMOGLOBIN 29.9 pg (27.0-33.0); MEAN CORPUSCULAR HGB CONC 33.4 g/dL (32.0-36.0); MEAN CORPUSCULAR VOLUME 89.5 fL (79-99); NEUTROPHILS % (AUTO) 52.1 % (40.0-77.0); PLATELET COUNT (AUTO) 158 K/uL (130-400); RED BLOOD CELL COUNT(AUTO) 4.55 MIL/uL (4.00-5.50); RED CELL DISTRIBUTION WIDTH 12.7 % (11.0-15.5); WHITE BLOOD COUNT (AUTO) 12.8 K/uL (4.8-10.8)
[2021-12-09 10:54] LABS: ALBUMIN 3.4 g/dL (3.5-5.0); BILIRUBIN,DIRECT 0.1 mg/dL (0.0-0.3); BILIRUBIN,TOTAL 0.3 mg/dL (0.2-1.0); CREATININE 0.9 mg/dL (0.5-1.5); POTASSIUM 4.1 mmol/L (3.5-5.1); THYROID STIMULATING HORMONE 0.53 uIU/mL (0.36-3.74); TOTAL PROTEIN, SERUM 7.4 g/dL (6.0-8.3); URIC ACID 4.4 mg/dL (2.6-7.2)
[2021-12-09 10:57] LABS: HEMOGLOBIN A1C 5.7 % (4.0-6.0)
== END | disposition home or self-care (01) ==
LOC: LAB 09:52
PROVIDERS: ATTEND Internal Medicine
DX: D50.9 Iron deficiency anemia, unspecified (principal); E03.9 Hypothyroidism, unspecified; G62.81 Critical illness polyneuropathy; I48.0 Paroxysmal atrial fibrillation; Z79.899 Other long term (current) drug therapy
CPT/HCPCS: 36415; 80053; 80061; 82043; 82248; 83036; 84439; 84443; 84550; 85025

== ENCOUNTER → 2022-03-11 | Outpatient (CLI) | payer MEDICARE ==
[2022-03-11 10:02] LABS: BASOPHILS % (AUTO) 0.5 % (0.0-5.0); EOSINOPHILS % (AUTO) 2.2 % (0.0-8.0); HEMATOCRIT 42.9 % (36-48); LYMPHOCYTES % (AUTO) 40.2 % (21.0-51.0); MEAN CORPUSCULAR HEMOGLOBIN 29.1 pg (27.0-33.0); MEAN CORPUSCULAR HGB CONC 31.9 g/dL (32.0-36.0); MEAN CORPUSCULAR VOLUME 91.3 fL (79-99); MONOCYTES % (AUTO) 5.3 % (3.0-13.0); NEUTROPHILS % (AUTO) 51.4 % (40.0-77.0); PLATELET COUNT (AUTO) 175 K/uL (130-400); RED CELL DISTRIBUTION WIDTH 12.8 % (11.0-15.5); WHITE BLOOD COUNT (AUTO) 11.4 K/uL (4.8-10.8)
[2022-03-11 10:28] LABS: ALBUMIN 3.6 g/dL (3.5-5.0); BILIRUBIN,TOTAL 0.2 mg/dL (0.2-1.0); CREATININE 0.7 mg/dL (0.5-1.5); POTASSIUM 4.6 mmol/L (3.5-5.1); THYROID STIMULATING HORMONE 0.76 uIU/mL (0.36-3.74); TOTAL PROTEIN, SERUM 7.6 g/dL (6.0-8.3)
== END | disposition home or self-care (01) ==
LOC: LAB 08:27
PROVIDERS: ATTEND Internal Medicine
DX: I48.0 Paroxysmal atrial fibrillation (principal); M21.371 Foot drop, right foot; R26.81 Unsteadiness on feet; Z13.220 Encounter for screening for lipoid disorders; Z79.899 Other long term (current) drug therapy
CPT/HCPCS: 36415; 80053; 80061; 84443; 85025

== ENCOUNTER → 2022-07-02 | Outpatient (CLI) | payer MEDICARE ==
[~2022-07-02] MED LIST changes: -MOME13HF IH; +MOME13HF11 IH
== END | disposition home or self-care (01) ==
LOC: RAH 09:56
PROVIDERS: ATTEND Internal Medicine Endocrinology, Diabetes & Metabolism
DX: C73 Malignant neoplasm of thyroid gland (principal); E89.0 Postprocedural hypothyroidism
CPT/HCPCS: 76536

== ENCOUNTER → 2024-01-08 | Outpatient (CLI) | payer MEDICARE ==
[~2024-01-08] MED LIST changes: +MONT-46 PO; -MONT10TA21 PO
== END | disposition home or self-care (01) ==
LOC: RAH 13:03
PROVIDERS: ATTEND Internal Medicine Endocrinology, Diabetes & Metabolism
DX: C73 Malignant neoplasm of thyroid gland (principal); E89.0 Postprocedural hypothyroidism
CPT/HCPCS: 76536

== ENCOUNTER 2024-12-30 17:38 | Observation (INO) | payer MEDICARE ==
[~2024-12-30] VITALS: Ht 160 cm; Wt 64.7 kg
[2024-12-30 18:32] LABS: BASOPHILS # (AUTO) 0.03 K/uL (0.00-0.20); BASOPHILS % (AUTO) 0.2 % (0.0-5.0); EOSINOPHILS # (AUTO) 0.47 K/uL (0.00-0.70); EOSINOPHILS % (AUTO) 3.4 % (0.0-8.0); HEMATOCRIT 39.7 % (36-48); IMMATURE GRANULOCYTE ABSOLUTE 0.05 K/uL (0-1); LYMPHOCYTES # (AUTO) 2.7 K/uL (1.0-4.8); LYMPHOCYTES % (AUTO) 19.2 % (21.0-51.0); MEAN CORPUSCULAR HEMOGLOBIN 29.5 pg (27.0-33.0); MEAN CORPUSCULAR HGB CONC 32.2 g/dL (32.0-36.0); MEAN CORPUSCULAR VOLUME 91.5 fL (79-99); MONOCYTES # (AUTO) 0.9 K/uL (0.1-1.0); MONOCYTES % (AUTO) 6.6 % (3.0-13.0); NEUTROPHILS # (AUTO) 9.7 K/uL (1.8-7.7); NEUTROPHILS % (AUTO) 70.2 % (40.0-77.0); PLATELET COUNT (AUTO) 172 K/uL (130-400); RED BLOOD CELL COUNT(AUTO) 4.34 MIL/uL (4.00-5.50); RED CELL DISTRIBUTION WIDTH 13.1 % (11.0-15.5); WHITE BLOOD COUNT (AUTO) 13.9 K/uL (4.8-10.8)
[2024-12-30 18:45] LABS: CREATININE 0.7 mg/dL (0.5-1.0); INR 1.04 (0.85-1.15)
[2024-12-30 18:46] LABS: PARTIAL THROMBOPLASTIN TIME 33.7 SEC (26.3-35.5)
[2024-12-30 19:02] LABS: B-TYPE NATRIURETIC PEPTIDE 23 pg/mL (0-100)
[2024-12-30 19:27] LABS: ADD UA MICROSCOPIC YES; APPEARANCE,URINE CLEAR (CLEAR); BILIRUBIN,URINE NEGATIVE (NEGATIVE); COLOR,URINE COLORLESS (YELLOW); GLUCOSE, URINE (UA) NEGATIVE (NEGATIVE); KETONES,URINE NEGATIVE (NEGATIVE); LEUKOCYTE ESTERASE ,URINE NEGATIVE Leu/uL (NEGATIVE); NITRATE,URINE NEGATIVE (NEGATIVE); PH,URINE 5.5 (5.0-8.0); PROTEIN,URINE NEGATIVE (NEGATIVE); UROBILINOGEN,URINE 0.2 mg/dL (0.2-1.0)
[2024-12-30 19:28] LABS: RBC,URINE 0-1 /HPF (0-1); SQUAMOUS EPITHELIAL CELL,UR RARE /HPF (0-2); WBC,URINE 0-1 /HPF (0-1)
--- NOTE | 2024-12-30 19:58 | HMCIMG ---
CHEST 1VW CLINICAL HISTORY: CHEST PAIN COMPARISON: 07/11/2021 TECHNIQUE: Single view of the chest was obtained. FINDINGS: There is mild pulmonary vascular congestion or interstitial infiltrates. Cardiac size given the limits of normal. The bony structures stable. IMPRESSION: Moderate congestion or interstitial disease.
[2024-12-31] VITALS (9 sets, daily range): BP systolic 93–139; BP diastolic 46–70; PULSE 64–90; RESP 18–20; TEMP 97.5–97.9; O2SAT 94–95
[2024-12-31] MEDS ORDERED: dilTIAZem 125 MG/25 ML INJ 125 MG in 0.9%NACL 100ML 100 ML IV PRN
--- NOTE | 2024-12-31 | ERN ---
General Chief Complaint: Chest Pain Stated Complaint: RAPID A FIB Time Seen by MD: 17:43 Time Seen by Midlevel: 17:43 Source: patient History of Present Illness Initial Comments The patient is a 69-year-old female presenting to the emergency department for evaluation of palpitations. The patient reports having previous episodes of atrial fibrillation that usually resolve on their own. Approximately 4 years ago she had a similar episode where she went into atrial fibrillation. She was prescribed metoprolol and Eliquis but ultimately decided not to take it since she came out of her AFib. Today she states that for the last couple of days she has been having some mild congestion so she decided to do an albuterol treatment at home. Shortly after she developed palpitations and a feeling of an irregular heartbeat. On arrival she specifically denies any chest pain or any other symptoms. Allergies: Coded Allergies: Iodine and Iodide Containing Produc (Unverified Allergy, Unknown, 05/05/19) benzoyl peroxide (Unverified Allergy, Unknown, 05/05/19) Home Meds Reported Medications Metoprolol Succinate (Metoprolol Succinate) 25 Mg Tab.er.24h, 1 TAB PO DAILY for 30 Days, #30 TAB 0 Refills 12/31/24 Apixaban (Eliquis) 5 Mg Tablet, 1 TAB PO BID for 30 Days, #60 TAB 0 Refills 12/31/24 Rimegepant Sulfate (Nurtec Odt) 75 Mg Tab.rapdis, 1 TAB PO QODAY PRN for MIGRAINE HEADACHE 12/31/24 Alendronate Sodium (Alendronate Sodium) 70 Mg Tablet, 1 TAB PO QWEEK 12/31/24 Montelukast Sodium (Montelukast Sodium) 10 Mg Tablet, 1 TAB PO HS 12/31/24 Pregabalin (Pregabalin) 50 Mg Capsule, 1 CAP PO BID 12/31/24 Celecoxib (Celecoxib) 200 Mg Capsule, 1 CAP PO BID 12/31/24 Baclofen (Baclofen) 10 Mg Tablet, 1 TAB PO TID 12/31/24 Levothyroxine Sodium (Synthroid 75 Mcg Tab) 75 Mcg Tablet, 1 TAB PO AD for 30 Days, #30 TAB 0 Refills 1 TABLET A DAY 6 TIMES A WEEK, AND 1.5 TABLET ONCE A WEEK 12/31/24 Levocetirizine Dihydrochloride (Levocetirizine Dihydrochloride) 5 Mg Tablet, 5 MG PO HS, TAB 09/12/19 Azelastine HCl (Azelastine HCl) 137 Mcg/0.137 Ml [place].pump, 137 MCG NS BID 09/12/19 Fluticasone Propionate (Flonase Nasal [place]) 50 Mcg/[place], 2 INHALER NASAL BID, SPRAY 06/03/19 Discontinued Reported Medications Metoprolol Tartrate (Metoprolol Tartrate) 50 Mg Tablet, 1 TAB PO ONCE for 30 Days, #60 TAB 0 Refills TOOK ONE TIME AROUND 4PM - HAD A SAMPLE PACK FROM PRIMARY DRLynne 12/31/24 Apixaban (Eliquis) 5 Mg Tablet, 1 TAB PO ONCE for 30 Days, #60 TAB 0 Refills TOOK ONE TIME AROUND 4PM - HAD A SAMPLE PACK FROM PRIMARY DRLynne 12/31/24 Famotidine (Pepcid) 20 Mg Tablet, 20 MG PO DAILYBKFST, TAB 04/24/20 Levothyroxine Sodium (Synthroid 100 Mcg Tab) 100 Mcg Tablet, 100 MCG PO DA ILYBKFST, TAB 04/24/20 Calcium Carbonate (Tums 500 mg Chew Tab) 1 Tab Tab.chew, 2 TAB PO AD PRN for HEARTBURN, TAB.CHEW 09/12/19 Metronidazole (Metrogel 1% Gel) 1 Appl/Gm Gel, 1 APPL TP BID PRN for RASH, GEL 06/03/19 Montelukast Sodium (Singulair 10Mg) 10 Mg Tab, 10 MG PO HS, TAB 06/03/19 Sumatriptan Succinate (Sumatriptan Succinate) 100 Mg Tablet, 100 MG PO AD, TAB 06/03/19 Ondansetron HCl (Zofran) 4 Mg Tablet, 4 MG PO QIDP PRN for NAUSEA, TAB 06/03/19 Mometasone/Formoterol (Dulera 200 Mcg/5 Mcg Inhaler) 13 Gm Hfa.aer.ad, 13 GM IH BID 06/03/19 Albuterol Sulfate (Proair Hfa) 8.5 Gm Hfa.aer.ad, 8.5 GM IH BID PRN for SHORTNESS OF BREATH 06/03/19 Budesonide (Pulmicort 0.5 mg/2Ml) 0.5 Mg/2 Ml Inh, 0.5 MG IH BID PRN for MARIBETH RTNESS OF BREATH, INH 06/03/19 Past Medical History Past Medical History: Asthma, Cancer, High Cholesterol, Heart Disease, Migraines, UTI Medical History Other: NEUROPATHY Past Surgical History: Appendectomy, Hysterectomy Surgical History Other: THYROIDECTOMY, A&P REPAIR ROS Dictation CONSTITUTIONAL: Negative except for HPI HEAD/FACE: Negative except for HPI EENT: Negative except for HPI RESPIRATORY: Negative except for HPI GASTROINTESTINAL/ABDOMINAL: Negative except for HPI GENITOURINARY: Negative except for HPI MUSCULOSKELETAL: Negative except for HPI INTEGUMENTARY: Negative except for HPI NEUROLOGICAL/PSYCH: Negative except for HPI HEMATOLOGIC/LYMPHATIC: Negative except for HPI All Systems Negative, Except as noted above. 13 point review of systems assessed and all negative except for above. Physical Exam Physical Exam Dictation Vital Signs reviewed General Appearance: Alert, oriented x 3, no acute distress, well developed, nourished. Head and Face: non-traumatic. Eyes: PERRL, pink conjunctivas, eyelid no trauma, anterior chamber with arcus senilis. Ears: Pinnas intact and no signs of trauma or erythema ear canals clear and no discharge TM no erythema Nose: No discharge, no bleeding. Oropharynx: Mouth normal, tongue pink, pharynx clear,no erythema, tonsils no exudates, no abscesses noted, mucous membrane moist Neck: Supple, non-tender, no thyromegaly, no masses, no JVD, no bruits Breast:Deferred Chest:No tenderness, no crepitus, no paradoxical movement, no retractions Lungs:Clear, well-ventilated, symmetric, no rales, no wheezing, no rhonchi, no stridor, good breath sounds bilaterally Heart: Regular rate, regular rhythm, no murmur, no gallops Vascular: no peripheral edema, Abdomen: Soft, positive bowel sounds, nondistended, no guarding, nontender, no rebound, no masses no hepatomegaly, no splenomegaly, no Alexander's sign, no hernias. Rectal: Deferred Genital: Deferred Neurological: Normal speech, motor function intact, sensory function intact Musculoskeletal: Neck nontender, full range of motion, back nontender, full range of motion, Extremities: nontender, full range of motion Skin: Color pink, dry, no turgor, no rash, no lacerations, no abrasions, no contusions. Lymphatic: Deferred Results Laboratory and Microbiology Lab and Micro Result Laboratory Tests Test 12/30/24 18:13 12/30/24 18:27 Urine Color COLORLESS (YELLOW) Urine Appearance CLEAR (CLEAR) Urine pH 5.5 (5.0-8.0) Urine Specific Clear 1.003 (1.001-1.031) Urine Protein NEGATIVE mg/dL (NEGATIVE) Urine Glucose (UA) NEGATIVE mg/dL (NEGATIVE) Urine Ketones NEGATIVE mg/dL (NEGATIVE) Urine Occult Blood +- (TRACE) (NEGATIVE) H Urine Nitrate NEGATIVE (NEGATIVE) Urine Bilirubin NEGATIVE mg/dL (NEGATIVE) Urine Urobilinogen 0.2 mg/dL (0.2-1.0) Urine Leukocyte Esterase NEGATIVE [place]/uL Urine RBC 0-1 /HPF (0-1) Urine WBC 0-1 /HPF (0-1) Urine Squamous Epithelial Cells RARE /HPF (0-2) Urine Bacteria None /HPF (None Seen) White Blood Count 13.9 K/uL (4.8-10.8) H Red Blood Count 4.34 MIL/uL (4.00-5.50) Hemoglobin 12.8 g/dL (12.0-16.0) Hematocrit 39.7 % (36-48) Mean Corpuscular Volume 91.5 fL (79-99) Mean Corpuscular Hemoglobin 29.5 pg (27.0-33.0) Mean Corpuscular Hemoglobin Concent 32.2 g/dL (32.0-36.0) Red Cell Distribution Width 13.1 % (11.0-15.5) Platelet Count 172 K/uL (130-400) Mean Platelet Volume 12.2 fL (7.5-10.5) H Immature Granulocyte % (Auto) 0.4 % (0-1) Neutrophils (%) (Auto) 70.2 % (40.0-77.0) Lymphocytes (%) (Auto) 19.2 % (21.0-51.0) L Monocytes (%) (Auto) 6.6 % (3.0-13.0) Eosinophils (%) (Auto) 3.4 % (0.0-8.0) Basophils (%) (Auto) 0.2 % (0.0-5.0) Neutrophils # (Auto) 9.7 K/uL (1.8-7.7) H Lymphocytes # (Auto) 2.7 K/uL (1.0-4.8) Monocytes # (Auto) 0.9 K/uL (0.1-1.0) Eosinophils # (Auto) 0.47 K/uL (0.00-0.70) Basophils # (Auto) 0.03 K/uL (0.00-0.20) Absolute Immature Granulocyte (auto 0.05 K/uL (0-1) Nucleated Red Blood Cells 0.0 % (0.0-0.19) Prothrombin Time 11.0 SEC (9.6-11.6) Prothromb Time International Ratio 1.04 (0.85-1.15) Activated Partial Thromboplast Time 33.7 SEC (26.3-35.5) Sodium Level 146 mmol/L (136-145) H Potassium Level 4.0 mmol/L (3.5-5.1) Chloride Level 109 mmol/L (101-111) Carbon Dioxide Level 31 mmol/L (21-32) Blood Urea Nitrogen 22 mg/dL (7-18) H Creatinine 0.7 mg/dL (0.5-1.0) Glomerular Filtration Rate Calc 94 mL/min (>90) Random Glucose 90 mg/dL (70-105) Total Calcium 9.2 mg/dL (8.5-10.1) Total Creatine Kinase 31 U/L (21-232) # Troponin I High Sensitivity 11 ng/L (4-50) B-Type Natriuretic Peptide 23 pg/mL (0-100) Labs Reviewed?: Yes MDM MDM: The patient is a 69-year-old female presenting to the emergency department for evaluation of palpitations. The patient reports having previous episodes of atrial fibrillation that usually resolve on their own. Approximately 4 years ago she had a similar episode where she went into atrial fibrillation. She was prescribed metoprolol and Eliquis but ultimately decided not to take it since she came out of her AFib. Today she states that for the last couple of days she has been having some mild congestion so she decided to do an albuterol treatment at home. Shortly after she developed palpitations and a feeling of an irregular heartbeat. On arrival she specifically denies any chest pain or any other symptom. On physical examination the patient was in no acute respiratory distress. She was tachycardic on my examination. Initial EKG reveals atrial fibrillation with rapid ventricular response with a rate of 120 beats per minute. She does report taking 50 mg of metoprolol and 5 mg of Eliquis prior to arrival. She states she had these medications from when she was prescribed several years ago. Cardiac workup was initiated. His CBC shows leukocytosis with a white blood cell count of 13.9. There was no anemia or thrombocytopenia. Chemistries are unremarkable. Troponin is negative. BNP is normal. Urinalysis does not show any evidence of infection. Chest x-ray reveals moderate congestion versus interstitial disease. Differential diagnosis: Acute coronary syndrome, electrolyte abnormality, dehydration, anemia Rationale: Tests considered and ordered secondary to shared decision making include: Previous outside records reviewed: Old ER visits. Risk of complication and/or morbidity or mortality of patient management: None Medications-Per medication reconciliation Need for hospitalization: Patient does meet criteria for hospitalization. Need for emergency major/minor surgery: No There are no social concerns with this patient. Prescription drug management Prescriptions will include symptomatic care Patient's prior external medical records from other ER visits were reviewed by me as indicated. Prior testing and results from previous visits were reviewed. Prior tests were taken into account with medical decision making and resource utilization, independent historian/historians were used to obtain complete medical history. I independently interpreted the test that were performed, results were reviewed by me and considered findings on radiology if ordered. Medical management and examination interpretation discussions were had by me with other qualified healthcare professionals as indicated for the patient's care. ED Course Orders Procedure Category Date Status Time Vital Signs Per CPOE 12/30/24 Transmitted Routine 18:18 B-Type Natriuretic LAB 12/30/24 Complete Peptide 18:18 Chest 1vw RAD 12/30/24 Resulted 18:18 12 Lead Ekg Tracing- EKG 12/30/24 Resulted Technical 18:18 Oxygen By Nc/Pulse Ox CPOE 12/30/24 Transmitted 18:18 Maintain Iv CPOE 12/30/24 Transmitted 18:18 Iv Insertion CPOE 12/30/24 Transmitted 18:18 Cardiac Monitoring CPOE 12/30/24 Transmitted 18:18 Pulse Oximetry With CPOE 12/30/24 Transmitted Vs And Prn 18:18 Cbc With Differential LAB 12/30/24 Complete 18:18 Activity: Br W/Brp CPOE 12/30/24 Transmitted With Assist 18:18 Creatine Kinase, Total LAB 12/30/24 Complete 18:18 Troponin I High LAB 12/30/24 Complete Sensitivity 18:18 Basic Metabolic Panel LAB 12/30/24 Complete 18:18 Pt And Ptt LAB 12/30/24 Complete 18:18 Urinalysis Profile LAB 12/30/24 Complete 18:31 Vital Signs Date Time Temp Pulse Resp B/P (MAP) Pulse Ox O2 Delivery O2 Flow Rate FiO2 12/30/24 19:41 98.4 81 16 109/63 96 Room Air* 0 21 12/30/24 18:32 102 16 117/74 95 Room Air* 0 21 12/30/24 17:43 99.1 110 18 144/[address] [facility] [address] [place] [address] IMAGING REPORT Signed PATIENT: BRENDA MURPHY MR#: [id number] : 1955 SEX: F AGE: 69 LOCATION: [facility] ORDER 18 STATUS: REG ER REPORT#: [id number] SERVICE 17 REASON: CHEST PAIN ORDERING PHYSICIAN: HORTENSIA MEDINA MD PROCEDURE: CXR1VW - CHEST 1VW CHEST 1VW CLINICAL HISTORY: CHEST PAIN COMPARISON: 07/11/2021 TECHNIQUE: Single view of the chest was obtained. FINDINGS: There is mild pulmonary vascular congestion or interstitial infiltrates. Cardiac size given the limits of normal. The bony structures stable. IMPRESSION: Moderate congestion or interstitial disease. DICTATED BY: YOAN MCGRATH DO DATE: 12/30/241952 ELECTRONICALLY SIGNED BY: YOAN MCGRATH DO DATE: 12/30/241957 DX & DISP Disposition: Inpatient Departure Impression: Primary Impression: Atypical chest pain Additional Impressions: Leukocytosis, Atrial fibrillation Condition: Stable Referrals: ANAID ALVARADO MD (PCP) I have reviewed the case, and I agree with, Diagnosis and Plan I performed the substantive portion of the visit. I have reviewed and personally made and approve the management plan that is documented in the note by myself or the JW. I acknowledge for responsibility for the patient's management plan. KENNETH HARVEY Dec 30, 2024 23:59
--- NOTE | 2024-12-31 01:25 | NUR ---
Pt arrives Aax3. No distress. at bedside. Home meds with pt and reconciled. Pt states took Metoprolol 50 mg and Eliquis 5 mg at home from a sample pack when she felt the palpitations. Pt currently afib controlled in 90s. Pt denies any CP or palpitations. 0314 Pt converted to SR.
[2024-12-31] MEDS ORDERED: CELE-125 PO (01:39)
[2024-12-31] MEDS ORDERED: PREG50CA64 PO (01:39)
[2024-12-31] MEDS ORDERED: ALEN70TA80 PO (01:39)
[2024-12-31] MEDS ORDERED: MONT-39 PO (01:39)
[2024-12-31] MEDS ORDERED: RIME75TA PO (01:39)
[2024-12-31] MEDS ORDERED: LEVO75TA4 PO (01:39)
[2024-12-31] MEDS ORDERED: BACL10TA PO (01:39)
[2024-12-31] MEDS ORDERED: METO50TA18 PO (01:52)
[2024-12-31] MEDS ORDERED: APIX5TAB PO ×2 (01:52→06:52)
--- NOTE | 2024-12-31 06:43 | NUR ---
Dr. Gallagher rounding Plan of care discussed with patient. Per MD, pt okay to discharge. Pt to continue meds as prescribed and start: Eliquis 5mg BID and Metoprolol Succinate 25 mg QD. Pt educated on this by MD. If pt decides to stay to see pending consult with [facility], pt may do so per Dr. Gallagher. Addendum: 12/31/24 at 0645 by TOMASA COLEMAN LVN LVN PRESCRIPTION FOR NEWS MEDS ALSO IN CHART.
[2024-12-31] MEDS ORDERED: METO-408 PO (06:52)
[2024-12-31] MEDS ORDERED: RIMEGEPANT SULFATE 75 MG PO PRN (07:00)
--- NOTE | 2024-12-31 08:12 | HP ---
HISTORY AND PHYSICAL NOTE DATE OF CONSULTATION: 12/31/24 REASON FOR CONSULTATION: Shortness of breath HISTORY OF PRESENT ILLNESS: Patient presents with shortness of breath and palpitations with rapid AFib as metoprolol heart rate has come down and is being admitted for further evaluation and management PAST MEDICAL HISTORY: Past Medical History: Asthma, Cancer, High Cholesterol, Heart Disease, Migraines, UTI Medical History Other: NEUROPATHY Past Surgical History: Appendectomy, Hysterectomy Surgical History Other: THYROIDECTOMY, A&P REPAIR ALLERGIES: Coded Allergies: Iodine and Iodide Containing Produc (Unverified Allergy, Unknown, 05/05/19) benzoyl peroxide (Unverified Allergy, Unknown, 05/05/19) HOME MEDS: Reported Medications Metoprolol Succinate (Metoprolol Succinate) 25 Mg Tab.er.24h, 1 TAB PO DAILY for 30 Days, #30 TAB 0 Refills 12/31/24 Apixaban (Eliquis) 5 Mg Tablet, 1 TAB PO BID for 30 Days, #60 TAB 0 Refills 12/31/24 Metoprolol Tartrate (Metoprolol Tartrate) 50 Mg Tablet, 1 TAB PO ONCE for 30 Days, #60 TAB 0 Refills TOOK ONE TIME AROUND 4PM - HAD A SAMPLE PACK FROM PRIMARY DRLynne 12/31/24 Apixaban (Eliquis) 5 Mg Tablet, 1 TAB PO ONCE for 30 Days, #60 TAB 0 Refills TOOK ONE TIME AROUND 4PM - HAD A SAMPLE PACK FROM PRIMARY DRLynne 12/31/24 Rimegepant Sulfate (Nurtec Odt) 75 Mg Tab.rapdis, 1 TAB PO QODAY PRN for MIGRAINE HEADACHE 12/31/24 Alendronate Sodium (Alendronate Sodium) 70 Mg Tablet, 1 TAB PO QWEEK 12/31/24 Montelukast Sodium (Montelukast Sodium) 10 Mg Tablet, 1 TAB PO HS 12/31/24 Pregabalin (Pregabalin) 50 Mg Capsule, 1 CAP PO BID 12/31/24 Celecoxib (Celecoxib) 200 Mg Capsule, 1 CAP PO BID 12/31/24 Baclofen (Baclofen) 10 Mg Tablet, 1 TAB PO TID 12/31/24 Levothyroxine Sodium (Synthroid 75 Mcg Tab) 75 Mcg Tablet, 1 TAB PO AD for 30 Days, #30 TAB 0 Refills 1 TABLET A DAY 6 TIMES A WEEK, AND 1.5 TABLET ONCE A WEEK 12/31/24 Levocetirizine Dihydrochloride (Levocetirizine Dihydrochloride) 5 Mg Tablet, 5 MG PO HS, TAB 09/12/19 Azelastine HCl (Azelastine HCl) 137 Mcg/0.137 Ml [place].pump, 137 MCG NS BID 09/12/19 Fluticasone Propionate (Flonase Nasal [place]) 50 Mcg/[place], 2 INHALER NASAL BID, SPRAY 06/03/19 Discontinued Reported Medications Famotidine (Pepcid) 20 Mg Tablet, 20 MG PO DAILYBKFST, TAB 04/24/20 Levothyroxine Sodium (Synthroid 100 Mcg Tab) 100 Mcg Tablet, 100 MCG PO DAILYBKFST, TAB 04/24/20 Calcium Carbonate (Tums 500 mg Chew Tab) 1 Tab Tab.chew, 2 TAB PO AD PRN for HEARTBURN, TAB.CHEW 09/12/19 Metronidazole (Metrogel 1% Gel) 1 Appl/Gm Gel, 1 APPL TP BID PRN for RASH, GEL 06/03/19 Montelukast Sodium (Singulair 10Mg) 10 Mg Tab, 10 MG PO HS, TAB 06/03/19 Sumatriptan Succinate (Sumatriptan Succinate) 100 Mg Tablet, 100 MG PO AD, TAB 06/03/19 Ondansetron HCl (Zofran) 4 Mg Tablet, 4 MG PO QIDP PRN for NAUSEA, TAB 06/03/19 Mometasone/Formoterol (Dulera 200 Mcg/5 Mcg Inhaler) 13 Gm Hfa.aer.ad, 13 GM IH BID 06/03/19 Albuterol Sulfate (Proair Hfa) 8.5 Gm Hfa.aer.ad, 8.5 GM IH BID PRN for SHORTNESS OF BREATH 06/03/19 Budesonide (Pulmicort 0.5 mg/2Ml) 0.5 Mg/2 Ml Inh, 0.5 MG IH BID PRN for SHORTNESS OF BREATH, INH 06/03/19 INPATIENT MEDS: Current Medications Medications Dose Ordered Sig/Constantin Start Time Stop Time Status Last Admin Diltiazem HCl 125 mg/Sodium Chloride 125 ml @ 0 mls/hr AD PRN 12/31/24 00:00 01/30/25 00:00 Apixaban 5 mg BID 12/31/24 09:00 01/30/25 08:59 Metoprolol Succinate 25 mg DAILY 12/31/24 09:00 01/30/25 08:59 Baclofen 10 mg TID 12/31/24 09:00 01/30/25 08:59 Celecoxib 200 mg BID 12/31/24 09:00 01/30/25 08:59 Fluticasone Propionate 2 SPRAYS BID 12/31/24 09:00 01/30/25 08:59 Levothyroxine Sodium 75 mcg AD 12/31/24 07:00 01/30/25 06:59 UNV Montelukast Sodium 10 mg HS 12/31/24 21:00 01/30/25 20:59 Alendronate Sodium 70 mg QWEEK@0630 01/07/25 06:30 02/06/25 06:29 Home Med Azelastine HCl 137 MCG BID 12/31/24 09:00 01/30/25 08:59 Home Med LEVOCETIRIZINE 5MG HS 12/31/24 21:00 01/30/25 20:59 Pregabalin 50 mg BID 12/31/24 09:00 01/30/25 08:59 Home Med Rimegepant Sulfate ([place]... QODAY PRN 12/31/24 07:00 01/30/25 06:59 VITAL SIGNS Vital Signs Date Time Temp Pulse Resp B/P (MAP) Pulse Ox O2 Delivery O2 Flow Rate FiO2 12/31/24 07:00 97.9 71 20 107/59 95 Room Air 12/31/24 05:05 65 96/49 12/31/24 04:09 97.5 70 18 95/46 95 Room Air 12/31/24 03:14 70 12/31/24 02:49 94 Room Air* 0 12/31/24 01:44 95 Room Air* 0 12/31/24 01:41 97.9 90 18 139/70 95 Room Air 12/31/24 00:07 98.4 74 17 107/42 96 Room Air* 0 12/30/24 19:41 98.4 81 16 109/63 96 Room Air* 0 12/30/24 18:32 102 16 117/74 95 Room Air* 0 12/30/24 17:43 99.1 110 18 144/76 97 Room Air PHYSICAL EXAM HEENT atraumatic normocephalic head Neck is supple Lungs are clear to auscultation percussion Heart was S1 and S2 is heard no murmur Abdomen is soft and benign no masses palpable Extremities no pedal edema Skin exam is normal Neurologic moves all her limbs no focal weakness Psychiatric not depressed Musculoskeletal no active joint inflammation LABORATORY RESULTS Laboratory Tests 12/30/24 18:13: Urine Color COLORLESS, Urine Appearance CLEAR, Urine pH 5.5, Urine Specific [place] 1.003, Urine Protein NEGATIVE, Urine Glucose (UA) NEGATIVE, Urine Ketones NEGATIVE, Urine Occult Blood +- (TRACE), Urine Nitrate NEGATIVE, Urine Bilirubin NEGATIVE, Urine Urobilinogen 0.2, Urine Leukocyte Esterase NEGATIVE, Urine RBC 0-1, Urine WBC 0-1, Urine Squamous Epithelial Cells RARE, Urine Ba cteria None 12/30/24 18:27: White Blood Count 13.9, Red Blood Count 4.34, Hemoglobin 12.8, Hematocrit 39.7, Mean Corpuscular Volume 91.5, Mean Corpuscular Hemoglobin 29.5, Mean Corpuscular Hemoglobin Concent 32.2, Red Cell Distribution Width 13.1, Platelet Count 172, Mean Platelet Volume 12.2, Immature Granulocyte % (Auto) 0.4, Neutrophils (%) (Auto) 70.2, Lymphocytes (%) (Auto) 19.2, Monocytes (%) (Auto) 6.6, Eosinophils (%) (Auto) 3.4, Basophils (%) (Auto) 0.2, Neutrophils # (Auto) 9.7, Lymphocytes # (Auto) 2.7, Monocytes # (Auto) 0.9, Eosinophils # (Auto) 0.47, Basophils # (Auto) 0.03, Absolute Immature Granulocyte (auto 0.05, Nucleated Red Blood Cells 0.0, Prothrombin Time 11.0, Prothromb Time International Ratio 1.04, Activated Partial Thromboplast Time 33.7, Sodium Level 146, Potassium Level 4.0, Chloride Level 109, Carbon Dioxide Level 31, Blood Urea Nitrogen 22, Creatinine 0.7, Glomerular Filtration Rate Calc 94, Random Glucose 90, Total Calcium 9.2, Total Creatine Kinase 31, Troponin I High Sensitivity 11, B-Type Natriuretic Peptide 23 12/31/24 02:41: Total Creatine Kinase 27, Troponin I High Sensitivity 10.6 PROBLEM LIST: (1) Atrial fibrillation ICD Codes: I48.91 - Unspecified atrial fibrillation (2) Hypertension ICD Codes: I10 - Essential (primary) hypertension PLAN Admit start with Cardizem drip to keep heart rate under control resume metoprolol resume Eliquis monitor consult Cardiology and echocardiogram ordered ANAID ALVARADO MD Dec 31, 2024 08:12
[2024-12-31] MEDS: metOPROLol sucCINATE 25 MG TAB.SR.24H PO SCH (08:56)
[2024-12-31] MEDS: APIXaban 5 MG TABLET PO SCH (08:56)
[2024-12-31] MEDS: fluTICasone proPIONate 50MCG/SPRAY 16 GM BOTTLE NS SCH (09:00)
[2024-12-31] MEDS: CeleCOXib 200 MG CAP PO SCH (09:00)
[2024-12-31] MEDS ORDERED: ENOXAPARIN SODIUM 60 MG/0.6 ML SQ SCH (09:00)
[2024-12-31] MEDS: pregABALin 25 MG CAP PO SCH (09:00)
[2024-12-31] MEDS: Azelastine HCl 137 MCG NASAL SCH (09:00)
[2024-12-31] MEDS: BACLOFEN 10 MG TABLET PO SCH (09:00)
--- NOTE | 2024-12-31 09:05 | EKG ---
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
[2024-12-31] MEDS: levoTHYROxine 75 MCG TABLET PO ONE (09:06)
[2024-12-31] MEDS: MAGNESIUM 2GM PREMIX 50ML 50 ML IV ONE (09:07)
--- NOTE | 2024-12-31 12:45 | NUR ---
DR. DÍAZ IN TO SEE PATIENT, UPDATE GIVEN. PATIENT MAY BE DISCHARGED.
--- NOTE | 2024-12-31 13:43 | NUR ---
GIVEN DISMISSAL INSTRUCTIONS AND WRITTEN SCRIPTS. VERBALIZED UNDERSTANDING. REMOVED SALINE LOCK FROM RIGHT HAND, IV SITE WITHOUT REDNESS NOTED. REMOVED TELE PACK. TAKEN TO PRIVATE ALONG WITH PERSONAL BELONGINGS VIA WHEELCHAIR BY ROSALVA KIMBROUGH.
--- NOTE | 2024-12-31 15:50 | HMCSR ---
APPROVED REPORT EXAM: Two-dimensional and M-mode echocardiogram with Doppler and color Doppler. INDICATION ICD: Atrial fibrillation 2D Dimensions IVSd0.7 (0.7-1.1cm)LVEF(%)67.8 (>50%) LVDd3.5 (3.8-5.6cm)FS(%)37 % PWd0.6 (0.7-1.1cm)LA (2D)3.2 (1.6-4.0cm) IVSs1.0 cmLVOT diam1.7 (1.8-2.4cm) LVDs2.2 (2.5-4.0cm)IVC diam1.4 cm PWs1.1 cm Deformation Strain Apical 4-22.0 % Apical 2-24.0 % Apical 3-24.0 % Global Strain-23.0 % M-Mode Dimensions EPSS0.3 cm LA (MM)3.4 (1.6-4.0cm) Ao Root(MM)2.5 (2.0-3.7cm) Aortic Valve AoV Vmax1.4 m/Valeria Peak GR8.0 mmHgLVOT Vmax1.1 m/s AoV VTI0.3 mAo Mean GR4.8 mmHgLVOT VTI0.26 m JULIETH (VMAX)1.8 cm2Al P1/2T597 msAVA (VTI) 1.8 cm2 Mitral Valve MV E Yfce683.1 cm/sDECEL Qcwk565 ms MV A Vmax51.0 cm/sP 1/2 T68 ms E/A ratio2.4MVA (PHT)3.2 cm2 TDI E/E' Fqsocp45.9 Medial E' Peak V11.00 cm/s Left Ventricle Left ventricular cavity size is normal. Normal GLS-23.0%. There is normal left ventricular wall thick ness. The LVEF is > 65%. Stage II, diastolic dysfunction. Right Ventricle The right ventricle is normal size. The right ventricular systolic function is normal. Atria The left atrium size is normal. The right atrium size is normal. Aortic Valve The aortic valve is normal in structure. Mild aortic regurgitation is present. There is no aortic candy vular stenosis. Mitral Valve The mitral valve is normal in structure. There is trace of mitral valve regurgitation noted. There is no mitral valve stenosis. Tricuspid Valve The tricuspid valve is normal in structure. There is no tricuspid valve regurgitation noted. Pulmonic Valve The pulmonary valve is normal in structure. There is no pulmonic valvular regurgitation. Great Vessels The aortic root is normal in size. The IVC is normal in size and collapses >50% with inspiration. Pericardium There is no pericardial effusion. Other Information Quality : Adequate Conclusion There is normal left ventricular wall thickness. The LVEF is > 65%. Stage II, diastolic dysfunction. Normal GLS-23.0%. Mild aortic regurgitation is present. There is trace of mitral valve regurgitation noted.
[2024-12-31] MEDS ORDERED: monteLUKAST sodIUM 10 MG TAB PO SCH (21:00)
[2024-12-31] MEDS ORDERED: LEVOCETIRIZINE 5MG PO SCH (21:00)
--- NOTE | 2024-12-31 21:59 | DS ---
Discharge Summary DIAGNOSE(S): [Paroxysmal atrial fibrillation] HOSPITAL COURSE SUMMARY: [Patient presented with shortness of breath with rapid AFib converted to sinus rhythm with a dose of metoprolol and discharged on metoprolol and Eliquis and she is in sinus rhythm with of shortness of breast chronic medical problems remained stable] DIETETIC ASSISTANT(S): [Cardiology] PROCEDURE(S)/TREATMENT(S): [None] PROBLEM(S): [] FOLLOW-UP TEST(S): [Echocardiogram] DISCHARGE INSTRUCTIONS: [Follow up with low-dose metoprolol and Eliquis] Home Meds Reported Medications Metoprolol Succinate (Metoprolol Succinate) 25 Mg Tab.er.24h, 1 TAB PO DAILY for 30 Days, #30 TAB 0 Refills 12/31/24 Apixaban (Eliquis) 5 Mg Tablet, 1 TAB PO BID for 30 Days, #60 TAB 0 Refills 12/31/24 Rimegepant Sulfate (Nurtec Odt) 75 Mg Tab.rapdis, 1 TAB PO QODAY PRN for MIGRAINE HEADACHE 12/31/24 Alendronate Sodium (Alendronate Sodium) 70 Mg Tablet, 1 TAB PO QWEEK 12/31/24 Montelukast Sodium (Montelukast Sodium) 10 Mg Tablet, 1 TAB PO HS 12/31/24 Pregabalin (Pregabalin) 50 Mg Capsule, 1 CAP PO BID 12/31/24 Celecoxib (Celecoxib) 200 Mg Capsule, 1 CAP PO BID 12/31/24 Baclofen (Baclofen) 10 Mg Tablet, 1 TAB PO TID 12/31/24 Levothyroxine Sodium (Synthroid 75 Mcg Tab) 75 Mcg Tablet, 1 TAB PO AD for 30 Days, #30 TAB 0 Refills 1 TABLET A DAY 6 TIMES A WEEK, AND 1.5 TABLET ONCE A WEEK 12/31/24 Levocetirizine Dihydrochloride (Levocetirizine Dihydrochloride) 5 Mg Tablet, 5 MG PO HS, TAB 09/12/19 Azelastine HCl (Azelastine HCl) 137 Mcg/0.137 Ml [place].pump, 137 MCG NS BID 09/12/19 Fluticasone Propionate (Flonase Nasal [place]) 50 Mcg/[place], 2 INHALER NASAL BID, SPRAY 06/03/19 Discontinued Reported Medications Metoprolol Tartrate (Metoprolol Tartrate) 50 Mg Tablet, 1 TAB PO ONCE for 30 Days, #60 TAB 0 Refills TOOK ONE TIME AROUND 4PM - HAD A SAMPLE PACK FROM PRIMARY 12/31/24 Apixaban (Eliquis) 5 Mg Tablet, 1 TAB PO ONCE for 30 Days, #60 TAB 0 Refills TOOK ONE TIME AROUND 4PM - HAD A SAMPLE PACK FROM PRIMARY DRLynne 12/31/24 Famotidine (Pepcid) 20 Mg Tablet, 20 MG PO DAILYBKFST, TAB 04/24/20 Levothyroxine Sodium (Synthroid 100 Mcg Tab) 100 Mcg Tablet, 100 MCG PO DAILYBKFST, TAB 04/24/20 Calcium Carbonate (Tums 500 mg Chew Tab) 1 Tab Tab.chew, 2 TAB PO AD PRN for HEARTBURN, TAB.CHEW 09/12/19 Metronidazole (Metrogel 1% Gel) 1 Appl/Gm Gel, 1 APPL TP BID PRN for RASH, GEL 06/03/19 Montelukast Sodium (Singulair 10Mg) 10 Mg Tab, 10 MG PO HS, TAB 06/03/19 Sumatriptan Succinate (Sumatriptan Succinate) 100 Mg Tablet, 100 MG PO AD, TAB 06/03/19 Ondansetron HCl (Zofran) 4 Mg Tablet, 4 MG PO QIDP PRN for NAUSEA, TAB 06/03/19 Mometasone/Formoterol (Dulera 200 Mcg/5 Mcg Inhaler) 13 Gm Hfa.aer.ad, 13 GM IH BID 06/03/19 Albuterol Sulfate (Proair Hfa) 8.5 Gm Hfa.aer.ad, 8.5 GM IH BID PRN for SHORTNESS OF BREATH 06/03/19 Budesonide (Pulmicort 0.5 mg/2Ml) 0.5 Mg/2 Ml Inh, 0.5 MG IH BID PRN for SHORTNESS OF BREATH, INH 06/03/19 ANAID ALVARADO MD Dec 31, 2024 21:59
[2025-01-01] MEDS ORDERED: levoTHYROxine 75 MCG TABLET PO SCH (06:30)
[2025-01-02] MEDS ORDERED: levoTHYROxine 75 MCG TABLET PO SCH (06:30)
[2025-01-07] MEDS ORDERED: ALENDRONATE SODIUM 35 MG TAB PO SCH (06:30)
== END 2024-12-31 13:29 | disposition home or self-care (01) ==
LOC: EDH 17:38 → EDHIP 23:19 → INTOOBSV 23:19 → 2AH 12-31 01:40
PROVIDERS: ADMIT Internal Medicine; ATTEND Internal Medicine
DX: I48.0 Paroxysmal atrial fibrillation (principal); I11.9 Hypertensive heart disease without heart failure; R00.2 Palpitations; J45.909 Unspecified asthma, uncomplicated; E78.00 Pure hypercholesterolemia, unspecified; G43.909 Migraine, unspecified, not intractable, without status migrainosus; E89.0 Postprocedural hypothyroidism; G62.9 Polyneuropathy, unspecified; Z90.49 Acquired absence of other specified parts of digestive tract; Z90.710 Acquired absence of both cervix and uterus; Z98.890 Other specified postprocedural states; Z79.899 Other long term (current) drug therapy; Z91.041 Radiographic dye allergy status; Z88.8 Allergy status to other drugs, medicaments and biological substances
CPT/HCPCS: 99285; 82550 ×3; 84484 ×3; 80048; 83880; 85025; 85610; 85730; 81001; 36415 ×2; 71045; 93005; 96365; 93306; 93356; G0378 ×5; J3475

== ENCOUNTER → 2025-10-02 | Outpatient (CLI) | payer MEDICARE ==
[~2025-10-02] MED LIST changes: -ALBU8.5H8 IH; +ALEN70TA80 PO; +APIX5TAB PO; +BACL10TA PO; -BUDE0.5A8 IH; -CALC500T13 PO; +CELE-125 PO; -FAMO-136 PO; -LEVO100T4 PO; +LEVO75TA4 PO; +METO-408 PO; -METR160G TP; -MOME13HF11 IH; +MONT-39 PO; -MONT-46 PO; -ONDA4TAB4 PO; +PREG50CA64 PO; +RIME75TA PO; -SUMA100T16 PO
--- NOTE | 2025-10-03 06:58 | HMCIMG ---
EXAMINATION: ULTRASOUND OF THE THYROID. CLINICAL HISTORY: Malignant neoplasm of thyroid. COMPARISON: Ultrasound of the thyroid dated 01/08/2024. TECHNIQUE: Transverse and longitudinal images were obtained through both lobes and the isthmus of the thyroid. FINDINGS: Both the thyroid lobes are not visualized, post thyroidectomy status. There is a possible residual thyroid tissue that measures 1.6 x 0.5 x 0.6 cm in the right side of the neck with complex mixed solid cystic nodule that measures 0.5 x 0.3 x 0.6 cm. There are lymph nodes that measure 1.0 x 0.4 x 1.1 cm, 1.2 x 0.4 x 0.7 cm, 0.5 x 0.5 x 0.4 cm in the right side of the neck. Hilar echoes are maintained. No increased vascularity. IMPRESSION: Post thyroidectomy status. Possible residual thyroid with complex nodule. Right cervical lymph nodes. No significant interval changes. /Hansa
== END | disposition home or self-care (01) ==
LOC: RAH 11:01
PROVIDERS: ATTEND Internal Medicine Endocrinology, Diabetes & Metabolism
DX: C73 Malignant neoplasm of thyroid gland (principal); E89.0 Postprocedural hypothyroidism; I89.8 Other specified noninfective disorders of lymphatic vessels and lymph nodes
CPT/HCPCS: 76536